=== PATIENT | male | born 1960 | race Caucasian/White ===

== ENCOUNTER 2020-04-17 18:59 | Inpatient (IN) | payer OTHER ==
[~2020-04-17] VITALS: Ht 175.3 cm; Wt 108.3 kg
[2020-04-17 19:52] LABS: BASOPHILS ABSOLUTE AUTO 0.07 K/mm3 (0.00-0.23); BASOPHILS PERCENT AUTO 1 % (0-2); EOSINOPHILS ABSOLUTE AUTO 0.12 K/mm3 (0.00-0.68); EOSINOPHILS PERCENT AUTO 2 % (0-6); Hematocrit 36.9 % (37.0-53.0); Hemoglobin 11.5 g/dL (13.5-17.5); IMMATURE GRAN ABSOLUTE AUTO 0.02 K/mm3 (0.00-0.10); IMMATURE GRAN PERCENT AUTO 0 % (0-1); LYMPHOCYTES ABSOLUTE AUTO 1.13 K/mm3 (0.84-5.20); LYMPHOCYTES PERCENT AUTO 16 % (21-46); MONOCYTES ABSOLUTE AUTO 0.79 K/mm3 (0.16-1.47); MONOCYTES PERCENT AUTO 11 % (4-13); Mean Corpuscular HGB 28.6 pg (26.0-34.0); Mean Corpuscular HGB Conc 31.2 g/dL (31.5-36.5); Mean Corpuscular Volume 92 fL (80-100); Mean Platelet Volume 10.1 fL (9.1-12.4); NEUTROPHILS ABSOLUTE AUTO 5.15 K/mm3 (1.96-9.15); NEUTROPHILS PERCENT AUTO 71 % (41-73); Platelet Count 237 K/mm3 (150-400); RDW Coefficient Variation 17.3 % (11.7-14.2); Red Blood Cell Count 4.02 M/mm3 (4.30-5.90); White Blood Cell Count 7.28 K/mm3 (4.00-11.30)
[2020-04-17 20:21] LABS: Alanine Aminotransfer (ALT/SGP 22 U/L (12-78); Albumin, Blood 3.1 g/dL (3.4-5.0); Albumin/Globulin Ratio 0.7 (0.8-1.8); Alk Phos 155 U/L (50-136); Anion Gap 5 mmol/L (6-16); Aspartate Aminotrans (AST/SGOT 19 U/L (12-37); Bilirubin, Total 1.5 mg/dL (0.1-1.0); Blood Urea Nitrogen 22 mg/dL (8-24); CO2, Blood 29 mmol/L (21-32); Calcium, Blood 8.7 mg/dL (8.5-10.1); Chloride, Blood 104 mmol/L (98-108); Creatinine, Blood 0.82 mg/dL (0.60-1.20); Globulin, Blood 4.2 g/dL (2.2-4.0); Glomerular Filtration Rate >60 (60-); Glucose, Blood 354 mg/dL (70-99); Potassium, Blood 4.8 mmol/L (3.5-5.5); Sodium, Blood 138 mmol/L (136-145); Total Protein, Blood 7.3 g/dL (6.4-8.2); Troponin I 0.111 ng/mL (0.000-0.040)
[2020-04-17] MEDS ORDERED: FUROSEMIDE20 MG PO (21:29)
[2020-04-17] MEDS ORDERED: GLIMEPIRIDE1 MG PO (21:30)
[2020-04-17] MEDS ORDERED: Lisinopril-Hct1 EAC4 PO (21:30)
[2020-04-17] MEDS ORDERED: LIPITOR80 MG PO (21:31)
[2020-04-17] MEDS ORDERED: BUDESONIDE-FO10.2 G3 INH (21:31)
[2020-04-17] MEDS ORDERED: SPIRONOLACTONE25 MG PO (21:31)
[2020-04-17] MEDS ORDERED: METFORMIN HCL1000 M4 PO (21:32)
[2020-04-17] MEDS ORDERED: IPRAT-ALBUT 0.5-3 ML NEB (21:32)
[2020-04-17] MEDS ORDERED: LOW DOSE ASPIRI81 M1 PO (21:33)
[2020-04-17] MEDS ORDERED: PRAM.5 PO (21:33)
[2020-04-17] MEDS ORDERED: METO50ER PO (21:33)
[2020-04-17] MEDS ORDERED: Ventolin/Prove6.7 GM INH (21:35)
--- NOTE | 2020-04-17 23:00 | NUR ---
ADMIT NOTE PT ARRIVED TO PCU FROM ED VIA STRETCHER AT APPROX 2300. PT AMBULATED INDEPENDENTLY FROM ED STRETCHER TO PCU BED. PT A&OX4. ANXIOUS AND COOPERATIVE. VSS. SP02>92% ON RA. PT WAS SOB UPON EXERTION/AMBULATION. RT IN ROOM FOR BREATHING TREATMENT. TELEMETRY READS SINUS TACH, HR 110'S. PT UNCOMFORTABLE D/T SWOLLEN SCROTUM. PT GIVEN LASIX IN ER. GAVE PT PILLOWCASE "HAMMOCK" FOR SCROTAL SUPPORT WELL ICE TO HELP SWELLING. PT STATED HE HAS HX OF RESTLESS LEG SYNDROME. CALL PLACED TO MD BELTRAN. MD BELTRAN WITH ONE TIME ORDER FOR MIRAPEX NOW. PT PACING THE ROOM INTERMITTENTLY. AMBULATING TO BSC INDEPENDENTLY. PT STATED HE LIVES IN [facility], "IN [facility]". STATED HE HAS BEARS COMING INTO HIS TENT AND "STEALING MY FOOD WHEN IM NOT THERE". THE PT IS VISITING HIS EX IN TOWN. PT ALSO MENTIONED A PREVIOUS HOSPITAL STAY IN [place] RECENTLY WHERE HE WAS IN RESTRAINTS. PT REPORTS BEING AGGRIVATED DURING THAT STAY. PT STATES, "I BROKE MY RESTRAINTS AND KICKED THEIR FACES IN." CALL LIGHT IN REACH. WILL CONTINUE TO MONITOR.
[2020-04-18 01:03] LABS: U Amphetamine Screen Not Detected; U Barbituate Screen Not Detected; U Benzodiazapine Screen Not Detected; U Buprenorphine Screen Not Detected; U Cannabinoids Screen Not Detected; U Cocaine Screen Not Detected; U Methadone Screen Not Detected; U Methamphetamine Screen Not Detected; U Opiates Screen Not Detected; U Oxycodone Screen Not Detected; U Phencyclidine Screen Not Detected
[2020-04-18 01:04] LABS: U Propoxyphene Screen Not Detected
[2020-04-18 02:39] LABS: Adenovirus Not Detected (NOT DETECT); Bordetella pertussis Not Detected (NOT DETECT); Chlamydophila pneumoniae Not Detected (NOT DETECT); Coronavirus 229E Not Detected (NOT DETECT); Coronavirus HKU1 Not Detected (NOT DETECT); Coronavirus NL63 Not Detected (NOT DETECT); Coronavirus OC43 Not Detected (NOT DETECT); Human Metapneumovirus Not Detected (NOT DETECT); Human Rhinovirus/Enterovirus Not Detected (NOT DETECT); Influenza A/2009-H1 Not Detected (NOT DETECT); Influenza A/H1 Not Detected (NOT DETECT); Influenza A/H3 Not Detected (NOT DETECT); Influenza B Not Detected (NOT DETECT); Mycoplasma pneumoniae Not Detected (NOT DETECT); Parainfluenza Virus 1 Not Detected (NOT DETECT); Parainfluenza Virus 2 Not Detected (NOT DETECT); Parainfluenza Virus 3 Not Detected (NOT DETECT); Parainfluenza Virus 4 Not Detected (NOT DETECT); Respiratory Syncytial Virus Not Detected (NOT DETECT); SARS-Cov-2 (COVID-19), BioFire Not Detected (NOT DETECT)
[2020-04-18 04:20] LABS: BASOPHILS ABSOLUTE AUTO 0.03 K/mm3 (0.00-0.23); BASOPHILS PERCENT AUTO 0 % (0-2); EOSINOPHILS ABSOLUTE AUTO 0.01 K/mm3 (0.00-0.68); EOSINOPHILS PERCENT AUTO 0 % (0-6); Hematocrit 35.8 % (37.0-53.0); Hemoglobin 11.1 g/dL (13.5-17.5); IMMATURE GRAN ABSOLUTE AUTO 0.04 K/mm3 (0.00-0.10); IMMATURE GRAN PERCENT AUTO 1 % (0-1); LYMPHOCYTES PERCENT AUTO 5 % (21-46); MONOCYTES ABSOLUTE AUTO 0.15 K/mm3 (0.16-1.47); MONOCYTES PERCENT AUTO 2 % (4-13); Mean Corpuscular HGB 28.3 pg (26.0-34.0); Mean Corpuscular Volume 91 fL (80-100); NEUTROPHILS ABSOLUTE AUTO 7.59 K/mm3 (1.96-9.15); NEUTROPHILS PERCENT AUTO 92 % (41-73); Platelet Count 200 K/mm3 (150-400); RDW Coefficient Variation 17.2 % (11.7-14.2); RDW Standard Deviation 57.7 fL (35.1-46.3); Red Blood Cell Count 3.92 M/mm3 (4.30-5.90); White Blood Cell Count 8.22 K/mm3 (4.00-11.30)
[2020-04-18 04:42] LABS: Anion Gap 6 mmol/L (6-16); Blood Urea Nitrogen 22 mg/dL (8-24); Bun/Creatinine Ratio 26.7 (12.0-20.0); CO2, Blood 29 mmol/L (21-32); Calcium, Blood 8.4 mg/dL (8.5-10.1); Chloride, Blood 101 mmol/L (98-108); Creatinine, Blood 0.82 mg/dL (0.60-1.20); Glomerular Filtration Rate >60 (60-); Glucose, Blood 409 mg/dL (70-99); Potassium, Blood 4.4 mmol/L (3.5-5.5); Sodium, Blood 136 mmol/L (136-145); Troponin I 0.082 ng/mL (0.000-0.040)
--- NOTE | 2020-04-18 05:56 | NUR ---
SHIFT SUMMARY PT A&OX4. ANXIOUS AND COOPERATIVE. VSS. SP02>92% ON RA. SOB UPON EXERTION/AMBULATION. TELEMETRY READS SINUS TACH, HR 110'S. PT UNCOMFORTABLE D/T SWOLLEN SCROTUM, STATES 10/10 PAIN. GAVE PT PILLOWCASE "HAMMOCK" FOR SCROTAL SUPPORT WELL ICE TO HELP SWELLING. MEDICATED WITH TYLENOL PER EMAR. PT PACING THE ROOM INTERMITTENTLY. PT STATES HE CANNOT GET COMFORTABLE SITTING OR LYING DOWN. PT STATES HE WANTS TO "CUT IT OFF" REGARDING HIS SCROTUM D/T PAIN. PT ALSO AMBULATED TO [facility] MULTIPLE TIMES T/O SHIFT. PT DID NOT SLEEP THIS SHIFT. PT DID HAVE AN APPETITE AND ASKED FOR/ATE SNACKS MULTIPLE TIMES. PT CURRENTLY IN BED WATCHING TV. CALL LIGHT IN REACH. WILL CONTINUE TO MONITOR.
--- NOTE | 2020-04-18 08:00 | NUR ---
pt laying in bed with eyes closed, responds slowly to nurse, after name is spoke, a/ox3, complains about breakfast food, v.s. stable, afebrile, iv site is clear and patent, lungs are course, wheezing, with crackles in bases, no coughed after taking po meds, encouraged him to sit up straight when taking any po, hrr, tele in place running sr per monitor, see strip, has scrotal edema and to legs, voids via urinal, skin has some scabs, up indep, andrés, call light in reach.
[2020-04-18 12:34] LABS: Glucose, Blood 581 mg/dL (70-99)
--- NOTE | 2020-04-18 14:50 | NUR ---
pt has been transferred to medical floor, report given to recieving nurse, pt was taken via wheelchair, with all belongings, box annealer in attendence.
--- NOTE | 2020-04-18 14:59 | NUR ---
After receiving an admit referral for spiritual care, I visit patient in PCU-1. Patient is sitting up in bed anbd alert. 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 Patient explains that he was told that he has less than 5yrs left to live due to his heart issues. I normalize patient's experience, and provide companionship, therapeutic listening and a calming presence. I will continue to remain available to patient and family.
[2020-04-18 15:25] LABS: Glucose, Blood 459 mg/dL (70-99)
--- NOTE | 2020-04-18 19:12 | NUR ---
Shift Summary Received report from Meagan PCU-RN. Patient arrived to unit via w/c approximately 1445. A/Ox4, pleasant with care. Calls appropriately for needs. Blood sugar check showed 172, per Nursing Notify order, patient is changed back to [facility] blood sugar checks. Dinner given, appetite is great. Mild dyspnea with exertion. Denies pain, nausea. Passed on to night RN that patient needed 3am blood sugar check. Up in room and to bathroom independently. No other changes. Report given to oncoming RN.
--- NOTE | 2020-04-19 04:31 | NUR ---
SHIFT SUMMARY NO ACUTE CHANGES TO REPORT THIS SHIFT. PT HAS BEEN INDEPENDENT IN HIS ROOM, HE AMBULATES TO THE VENDING MACHINE A FEW TIMES THIS SHIFT. HE HAS BEEN AWAKE MOST OF THE NIGHT DESPITE SEROQUELL THAT HE RECEIVED HS. PT NONCOMPLAINT WITH ADA DIET, AND WILL EAT SNACKS FROM THE VENDING MACHINE THAT ARE NOT SUGAR FREE. BG MONITORED THIS SHIFT ORDERED. PT PLESANT AND COOPERATIVE WITH CARE. DENIES NEEDS MOST OF THE NIGHT. BED IN LOWEST POSITION, CALL LIGHT WITHIN REACH.
[2020-04-19 04:36] LABS: BASOPHILS ABSOLUTE AUTO 0.01 K/mm3 (0.00-0.23); BASOPHILS PERCENT AUTO 0 % (0-2); EOSINOPHILS PERCENT AUTO 0 % (0-6); Hematocrit 35.3 % (37.0-53.0); Hemoglobin 11.2 g/dL (13.5-17.5); IMMATURE GRAN PERCENT AUTO 1 % (0-1); LYMPHOCYTES ABSOLUTE AUTO 0.52 K/mm3 (0.84-5.20); LYMPHOCYTES PERCENT AUTO 3 % (21-46); MONOCYTES ABSOLUTE AUTO 0.84 K/mm3 (0.16-1.47); MONOCYTES PERCENT AUTO 5 % (4-13); Mean Corpuscular HGB 29.1 pg (26.0-34.0); Mean Corpuscular HGB Conc 31.7 g/dL (31.5-36.5); Mean Corpuscular Volume 92 fL (80-100); Mean Platelet Volume 10.4 fL (9.1-12.4); NEUTROPHILS ABSOLUTE AUTO 17.37 K/mm3 (1.96-9.15); NEUTROPHILS PERCENT AUTO 92 % (41-73); Platelet Count 227 K/mm3 (150-400); RDW Coefficient Variation 17.5 % (11.7-14.2); RDW Standard Deviation 58.4 fL (35.1-46.3); Red Blood Cell Count 3.85 M/mm3 (4.30-5.90); White Blood Cell Count 18.84 K/mm3 (4.00-11.30)
[2020-04-19 04:54] LABS: Anion Gap 5 mmol/L (6-16); Blood Urea Nitrogen 42 mg/dL (8-24); Bun/Creatinine Ratio 40.8 (12.0-20.0); CO2, Blood 31 mmol/L (21-32); Calcium, Blood 8.4 mg/dL (8.5-10.1); Chloride, Blood 99 mmol/L (98-108); Creatinine, Blood 1.03 mg/dL (0.60-1.20); Glomerular Filtration Rate >60 (60-); Glucose, Blood 456 mg/dL (70-99); Potassium, Blood 4.4 mmol/L (3.5-5.5); Sodium, Blood 135 mmol/L (136-145)
--- NOTE | 2020-04-19 08:09 | NUR ---
BLOOD SUGAR [address] BOWER RE ABOVE BLOOD SUGAR FINDINGS. ORDER RECEIVED AND UPDATED PER NURSING NOTIFY.
--- NOTE | 2020-04-19 17:03 | NUR ---
Shift Summary A/Ox3, received in report that patient went downstairs to purchase multiple snacks from the vending machine in the middle of the night. Blood sugar this morning was 494 and is currently down to 132 ac/dinner. Patient often complains of being hungry and frequently asks for snacks. Very cooperative with care this shift as long as things were explained to him. Productive cough with thick, clear, white, grayish sputum; L/S clear. Swelling in scrotum continues. Strict I/O's, patient is on a fluid restriction of 2L and has been compliant today. Will continue to monitor and report to oncoming RN.
--- NOTE | 2020-04-20 03:39 | NUR ---
SUMMARY NO NEW ISSUES NOTED. PT HAS CONTINUALLY REQUESTED SNACKS T/O SHIFT. PT INFORMED THAT IN ORDER TO CONTROL HIS BLOOD SUGARS WE HAD TO LIMIT HIS SNACKING UNTIL BREAKFAST. PT HAS NOT SLEPT MUCH THIS SHIFT. PT CURRENTLY AWAKE AND IN NO DISTRESS.
[2020-04-20 05:26] LABS: BASOPHILS ABSOLUTE AUTO 0.04 K/mm3 (0.00-0.23); BASOPHILS PERCENT AUTO 1 % (0-2); EOSINOPHILS ABSOLUTE AUTO 0.04 K/mm3 (0.00-0.68); EOSINOPHILS PERCENT AUTO 1 % (0-6); Hemoglobin 11.2 g/dL (13.5-17.5); IMMATURE GRAN ABSOLUTE AUTO 0.03 K/mm3 (0.00-0.10); IMMATURE GRAN PERCENT AUTO 0 % (0-1); LYMPHOCYTES ABSOLUTE AUTO 1.48 K/mm3 (0.84-5.20); LYMPHOCYTES PERCENT AUTO 17 % (21-46); MONOCYTES PERCENT AUTO 8 % (4-13); Mean Corpuscular HGB 28.1 pg (26.0-34.0); Mean Corpuscular HGB Conc 31.1 g/dL (31.5-36.5); Mean Corpuscular Volume 91 fL (80-100); Mean Platelet Volume 10.1 fL (9.1-12.4); NEUTROPHILS ABSOLUTE AUTO 6.57 K/mm3 (1.96-9.15); NEUTROPHILS PERCENT AUTO 74 % (41-73); Platelet Count 216 K/mm3 (150-400); RDW Coefficient Variation 17.6 % (11.7-14.2); RDW Standard Deviation 58.4 fL (35.1-46.3); Red Blood Cell Count 3.98 M/mm3 (4.30-5.90); White Blood Cell Count 8.86 K/mm3 (4.00-11.30)
[2020-04-20 06:05] LABS: Anion Gap 5 mmol/L (6-16); Blood Urea Nitrogen 50 mg/dL (8-24); Bun/Creatinine Ratio 44.2 (12.0-20.0); CO2, Blood 33 mmol/L (21-32); Chloride, Blood 102 mmol/L (98-108); Creatinine, Blood 1.13 mg/dL (0.60-1.20); Glomerular Filtration Rate >60 (60-); Glucose, Blood 174 mg/dL (70-99); Potassium, Blood 3.6 mmol/L (3.5-5.5); Sodium, Blood 140 mmol/L (136-145)
--- NOTE | 2020-04-21 03:58 | NUR ---
MANAGER SOCIAL WORK SUMMARY PT A&OX4, ABLE TO MAKE NEEDS KNOWN. PLEASANT AND COOPERATIVE TO CARE. NO C/O PAIN OR ANY DISCOMFORT THIS SHIFT. CALM AND RESTED T/O SHIFT. PT IS INDEPENDENT IN ROOM. DENIES CP, SOB, AND N&V. POSSIBLE DISCHARGE TO HOME 04/21/2020. CALL LIGHT WITHIN REACH.
[2020-04-21 05:11] LABS: BASOPHILS ABSOLUTE AUTO 0.04 K/mm3 (0.00-0.23); BASOPHILS PERCENT AUTO 1 % (0-2); EOSINOPHILS ABSOLUTE AUTO 0.11 K/mm3 (0.00-0.68); EOSINOPHILS PERCENT AUTO 2 % (0-6); Hematocrit 33.2 % (37.0-53.0); Hemoglobin 10.8 g/dL (13.5-17.5); IMMATURE GRAN ABSOLUTE AUTO 0.02 K/mm3 (0.00-0.10); IMMATURE GRAN PERCENT AUTO 0 % (0-1); LYMPHOCYTES ABSOLUTE AUTO 1.26 K/mm3 (0.84-5.20); LYMPHOCYTES PERCENT AUTO 20 % (21-46); MONOCYTES ABSOLUTE AUTO 0.69 K/mm3 (0.16-1.47); MONOCYTES PERCENT AUTO 11 % (4-13); Mean Corpuscular HGB 29.5 pg (26.0-34.0); Mean Corpuscular HGB Conc 32.5 g/dL (31.5-36.5); Mean Corpuscular Volume 91 fL (80-100); Mean Platelet Volume 10.3 fL (9.1-12.4); NEUTROPHILS ABSOLUTE AUTO 4.13 K/mm3 (1.96-9.15); NEUTROPHILS PERCENT AUTO 66 % (41-73); Platelet Count 190 K/mm3 (150-400); RDW Coefficient Variation 17.6 % (11.7-14.2); RDW Standard Deviation 57.9 fL (35.1-46.3); Red Blood Cell Count 3.66 M/mm3 (4.30-5.90); White Blood Cell Count 6.25 K/mm3 (4.00-11.30)
[2020-04-21 05:25] LABS: Anion Gap 5 mmol/L (6-16); Blood Urea Nitrogen 47 mg/dL (8-24); Bun/Creatinine Ratio 49.5 (12.0-20.0); CO2, Blood 35 mmol/L (21-32); Calcium, Blood 8.8 mg/dL (8.5-10.1); Chloride, Blood 102 mmol/L (98-108); Creatinine, Blood 0.95 mg/dL (0.60-1.20); Glomerular Filtration Rate >60 (60-); Glucose, Blood 240 mg/dL (70-99); Potassium, Blood 3.8 mmol/L (3.5-5.5); Sodium, Blood 142 mmol/L (136-145)
[2020-04-21] MEDS ORDERED: SPIR25 PO (11:22)
[2020-04-21] MEDS ORDERED: SEMGLEE PE100 UNIT/1 SC (11:27)
[2020-04-21] MEDS ORDERED: K-Dur 20 meq T20 MEQ PO (11:30)
--- NOTE | 2020-04-21 12:03 | NUR ---
DISCHARGED TO EX- HOME. PT AGREEABLE TO FOLLOW-UP WITH PCP ONCE BACK IN [place], MD AWARE. PT VERBALIZED UNDERSTANDING OF RX'S, FOLLOW-UP AND INSTRUCTIONS. MEDS SENT TO [facility], PT PHARM OF CHOICE. ALL QUESTIONS ANSWERED. COMMUNITY RESOURCES PROVIDED.
== END 2020-04-21 12:05 | disposition home or self-care (01) | DRG 292 ==
LOC: ER 18:59 → PCU 19:00 → ER 22:34 → PCU 22:53 → MEDS 04-18 14:46
PROVIDERS: Emergency Medicine; Hospitalist; Nurse Practitioner Acute Care; Student in an Organized Health Care Education/Training Program; ADMIT Internal Medicine
DX: I11.0 Hypertensive heart disease with heart failure (principal); J44.1 Chronic obstructive pulmonary disease with (acute) exacerbation; K59.00 Constipation, unspecified; Z66 Do not resuscitate; I50.23 Acute on chronic systolic (congestive) heart failure; E11.9 Type 2 diabetes mellitus without complications; F17.210 Nicotine dependence, cigarettes, uncomplicated; Z59.0 Homelessness; N50.89 Other specified disorders of the male genital organs; I25.2 Old myocardial infarction; F15.10 Other stimulant abuse, uncomplicated; G47.00 Insomnia, unspecified; Z91.14 Patient's other noncompliance with medication regimen; Z79.4 Long term (current) use of insulin; Z95.5 Presence of coronary angioplasty implant and graft
CPT/HCPCS: 0202U; 36415; 71046; 76870; 80048; 80053; 82947; 83605; 83880; 84484; 85025; 87040; 90732; 93005; 93010; 94640; 94664; 94667; 94668; 94760; 94762; 96372; 96374; 96375; 96376; 98960; 99285-25; A9270; A9270-GY; G0008; G0009; G0378; J0456; J1100; J1650; J1815; J1940; J2930; J7050; Q2038

== ENCOUNTER 2020-04-28 08:12 | Emergency (ER) | payer SELFPAY ==
[~2020-04-28] VITALS: Ht 175.3 cm; Wt 104.3 kg
[~2020-04-28 08:12] MED LIST: BUDESONIDE-FO10.2 G3 INH; FUROSEMIDE20 MG PO; GLIMEPIRIDE1 MG PO; IPRAT-ALBUT 0.5-3 ML NEB; K-Dur 20 meq T20 MEQ PO; LIPITOR80 MG PO; LOW DOSE ASPIRI81 M1 PO; Lisinopril-Hct1 EAC4 PO; METFORMIN HCL1000 M4 PO; METO50ER PO; PRAM.5 PO; SEMGLEE PE100 UNIT/1 SC; SPIR25 PO; SPIRONOLACTONE25 MG PO; Ventolin/Prove6.7 GM INH
[2020-04-28 09:42] LABS: Alanine Aminotransfer (ALT/SGP 19 U/L (12-78); Albumin, Blood 3.1 g/dL (3.4-5.0); Albumin/Globulin Ratio 0.8 (0.8-1.8); Alk Phos 141 U/L (50-136); Anion Gap 2 mmol/L (6-16); Aspartate Aminotrans (AST/SGOT 19 U/L (12-37); Bilirubin, Total 1.2 mg/dL (0.1-1.0); Blood Urea Nitrogen 29 mg/dL (8-24); Bun/Creatinine Ratio 30.5 (12.0-20.0); CO2, Blood 33 mmol/L (21-32); Calcium, Blood 8.8 mg/dL (8.5-10.1); Chloride, Blood 103 mmol/L (98-108); Creatinine, Blood 0.95 mg/dL (0.60-1.20); Glomerular Filtration Rate >60 (60-); Glucose, Blood 255 mg/dL (70-99); Potassium, Blood 4.5 mmol/L (3.5-5.5); Sodium, Blood 138 mmol/L (136-145); Total Protein, Blood 7.1 g/dL (6.4-8.2); Troponin I 0.032 ng/mL (0.000-0.040)
[2020-04-28 10:08] LABS: BASOPHILS ABSOLUTE AUTO 0.07 K/mm3 (0.00-0.23); BASOPHILS PERCENT AUTO 1 % (0-2); EOSINOPHILS ABSOLUTE AUTO 0.11 K/mm3 (0.00-0.68); EOSINOPHILS PERCENT AUTO 1 % (0-6); Hematocrit 37.5 % (37.0-53.0); Hemoglobin 11.8 g/dL (13.5-17.5); IMMATURE GRAN ABSOLUTE AUTO 0.04 K/mm3 (0.00-0.10); IMMATURE GRAN PERCENT AUTO 1 % (0-1); LYMPHOCYTES ABSOLUTE AUTO 1.43 K/mm3 (0.84-5.20); LYMPHOCYTES PERCENT AUTO 17 % (21-46); MONOCYTES ABSOLUTE AUTO 0.84 K/mm3 (0.16-1.47); MONOCYTES PERCENT AUTO 10 % (4-13); Mean Corpuscular HGB Conc 31.5 g/dL (31.5-36.5); Mean Corpuscular Volume 92 fL (80-100); Mean Platelet Volume 10.6 fL (9.1-12.4); NEUTROPHILS ABSOLUTE AUTO 5.86 K/mm3 (1.96-9.15); NEUTROPHILS PERCENT AUTO 70 % (41-73); Platelet Count 212 K/mm3 (150-400); RDW Coefficient Variation 17.1 % (11.7-14.2); RDW Standard Deviation 57.7 fL (35.1-46.3); Red Blood Cell Count 4.07 M/mm3 (4.30-5.90); White Blood Cell Count 8.35 K/mm3 (4.00-11.30)
[2020-04-28] MEDS ORDERED: SPIR25 PO (11:34)
== END 2020-04-28 11:56 | disposition home or self-care (01) ==
LOC: ER 08:12
PROVIDERS: Emergency Medicine
DX: I11.0 Hypertensive heart disease with heart failure (principal); I50.9 Heart failure, unspecified; E11.9 Type 2 diabetes mellitus without complications; I25.2 Old myocardial infarction; Z79.899 Other long term (current) drug therapy; Z79.82 Long term (current) use of aspirin; Z79.4 Long term (current) use of insulin
CPT/HCPCS: 36415; 71046; 80053; 83880; 84484; 85025; 93005; 93010; 96374; 99284-25; J1940

== ENCOUNTER 2020-05-03 15:50 | Emergency (ER) | payer OTHER ==
[~2020-05-03] VITALS: Ht 175.3 cm; Wt 104.3 kg
[2020-05-03 17:00] LABS: BASOPHILS ABSOLUTE AUTO 0.08 K/mm3 (0.00-0.23); BASOPHILS PERCENT AUTO 1 % (0-2); EOSINOPHILS ABSOLUTE AUTO 0.06 K/mm3 (0.00-0.68); EOSINOPHILS PERCENT AUTO 1 % (0-6); Hemoglobin 11.2 g/dL (13.5-17.5); IMMATURE GRAN ABSOLUTE AUTO 0.02 K/mm3 (0.00-0.10); IMMATURE GRAN PERCENT AUTO 0 % (0-1); LYMPHOCYTES PERCENT AUTO 13 % (21-46); MONOCYTES ABSOLUTE AUTO 0.68 K/mm3 (0.16-1.47); MONOCYTES PERCENT AUTO 9 % (4-13); Mean Corpuscular HGB 28.4 pg (26.0-34.0); Mean Corpuscular HGB Conc 31.1 g/dL (31.5-36.5); Mean Corpuscular Volume 91 fL (80-100); Mean Platelet Volume 10.7 fL (9.1-12.4); NEUTROPHILS ABSOLUTE AUTO 5.68 K/mm3 (1.96-9.15); NEUTROPHILS PERCENT AUTO 76 % (41-73); Platelet Count 203 K/mm3 (150-400); RDW Coefficient Variation 17.2 % (11.7-14.2); Red Blood Cell Count 3.95 M/mm3 (4.30-5.90); White Blood Cell Count 7.52 K/mm3 (4.00-11.30)
[2020-05-03 17:26] LABS: Troponin I 0.017 ng/mL (0.000-0.040)
[2020-05-03 17:32] LABS: Alanine Aminotransfer (ALT/SGP 16 U/L (12-78); Albumin, Blood 3.1 g/dL (3.4-5.0); Albumin/Globulin Ratio 0.8 (0.8-1.8); Alk Phos 134 U/L (50-136); Anion Gap 8 mmol/L (6-16); Aspartate Aminotrans (AST/SGOT 19 U/L (12-37); Bilirubin, Total 2.3 mg/dL (0.1-1.0); Blood Urea Nitrogen 24 mg/dL (8-24); Bun/Creatinine Ratio 24.7 (12.0-20.0); CO2, Blood 28 mmol/L (21-32); Chloride, Blood 105 mmol/L (98-108); Creatinine, Blood 0.97 mg/dL (0.60-1.20); Globulin, Blood 3.8 g/dL (2.2-4.0); Glomerular Filtration Rate >60 (60-); Glucose, Blood 229 mg/dL (70-99); Potassium, Blood 4.4 mmol/L (3.5-5.5); Sodium, Blood 141 mmol/L (136-145); Total Protein, Blood 6.9 g/dL (6.4-8.2)
== END 2020-05-03 21:07 | disposition home or self-care (01) ==
LOC: ER 15:50
PROVIDERS: Physician Assistant
DX: R60.1 Generalized edema (principal); N50.89 Other specified disorders of the male genital organs; I11.0 Hypertensive heart disease with heart failure; I50.9 Heart failure, unspecified; I25.2 Old myocardial infarction; E11.9 Type 2 diabetes mellitus without complications; F17.200 Nicotine dependence, unspecified, uncomplicated; Z79.899 Other long term (current) drug therapy; Z79.51 Long term (current) use of inhaled steroids; Z79.4 Long term (current) use of insulin; Z79.82 Long term (current) use of aspirin; Z88.8 Allergy status to other drugs, medicaments and biological substances
CPT/HCPCS: 36415; 71046; 80053; 83880; 84484; 85025; 93005; 93010; 96374; 99285-25; J1940

== ENCOUNTER 2020-06-05 17:29 | Inpatient (IN) | payer SELFPAY ==
[~2020-06-05] VITALS: Ht 175.3 cm; Wt 103.0 kg
[~2020-06-05 17:29] MED LIST changes: -BUDESONIDE-FO10.2 G3 INH; -FUROSEMIDE20 MG PO; -GLIMEPIRIDE1 MG PO; -IPRAT-ALBUT 0.5-3 ML NEB; -LIPITOR80 MG PO; -LOW DOSE ASPIRI81 M1 PO; -Lisinopril-Hct1 EAC4 PO; -METFORMIN HCL1000 M4 PO; -METO50ER PO; -PRAM.5 PO; -SEMGLEE PE100 UNIT/1 SC; -Ventolin/Prove6.7 GM INH
[2020-06-05 18:01] LABS: Base Excess Venous 3.7 mmol/L; PCO2 Venous 43.6 mmHg (38-42); PO2 Venous 56.5 mmHg (38-42); pH Blood Venous 7.42 (7.34-7.37)
[2020-06-05 18:03] LABS: BASOPHILS ABSOLUTE AUTO 0.08 K/mm3 (0.00-0.23); BASOPHILS PERCENT AUTO 1 % (0-2); EOSINOPHILS ABSOLUTE AUTO 0.11 K/mm3 (0.00-0.68); EOSINOPHILS PERCENT AUTO 2 % (0-6); Hematocrit 37.7 % (37.0-53.0); Hemoglobin 12.1 g/dL (13.5-17.5); IMMATURE GRAN ABSOLUTE AUTO 0.01 K/mm3 (0.00-0.10); IMMATURE GRAN PERCENT AUTO 0 % (0-1); LYMPHOCYTES ABSOLUTE AUTO 1.15 K/mm3 (0.84-5.20); LYMPHOCYTES PERCENT AUTO 19 % (21-46); MONOCYTES ABSOLUTE AUTO 0.47 K/mm3 (0.16-1.47); MONOCYTES PERCENT AUTO 8 % (4-13); Mean Corpuscular HGB Conc 32.1 g/dL (31.5-36.5); Mean Corpuscular Volume 90 fL (80-100); NEUTROPHILS ABSOLUTE AUTO 4.37 K/mm3 (1.96-9.15); NEUTROPHILS PERCENT AUTO 71 % (41-73); Platelet Count 222 K/mm3 (150-400); RDW Coefficient Variation 17.5 % (11.7-14.2); RDW Standard Deviation 57.9 fL (35.1-46.3); Red Blood Cell Count 4.17 M/mm3 (4.30-5.90); White Blood Cell Count 6.19 K/mm3 (4.00-11.30)
[2020-06-05 18:22] LABS: Alanine Aminotransfer (ALT/SGP 19 U/L (12-78); Albumin, Blood 3.4 g/dL (3.4-5.0); Albumin/Globulin Ratio 0.8 (0.8-1.8); Alk Phos 131 U/L (50-136); Anion Gap 8 mmol/L (6-16); Aspartate Aminotrans (AST/SGOT 30 U/L (12-37); Bilirubin, Total 1.8 mg/dL (0.1-1.0); Blood Urea Nitrogen 20 mg/dL (8-24); Bun/Creatinine Ratio 27.4 (12.0-20.0); CO2, Blood 25 mmol/L (21-32); Calcium, Blood 9.2 mg/dL (8.5-10.1); Chloride, Blood 103 mmol/L (98-108); Creatinine, Blood 0.73 mg/dL (0.60-1.20); Globulin, Blood 4.3 g/dL (2.2-4.0); Glomerular Filtration Rate >60 (60-); Glucose, Blood 291 mg/dL (70-99); Potassium, Blood 4.8 mmol/L (3.5-5.5); Sodium, Blood 136 mmol/L (136-145); Total Protein, Blood 7.7 g/dL (6.4-8.2); Troponin I 0.033 ng/mL (0.000-0.040)
[2020-06-05 19:15] LABS: Source, Urine Clean Catch
[2020-06-05 19:23] LABS: Appearance, Urine Clear (Clear); Bilirubin, Urine Neg (Neg); Blood, Urine Neg (Neg); Color, Urine Yellow (P-Yellow); Glucose Qualitative, Urine 3+ (Neg); Ketones, Urine Neg (Neg); Leukocyte Esterase, Urine Neg (Neg); Nitrite, Urine Neg (Neg); Protein, Urine Neg (Neg); Urobilinogen, Urine NORM (Normal)
[2020-06-05] MEDS ORDERED: GLIMEPIRIDE1 MG PO (20:13)
[2020-06-05] MEDS ORDERED: SPIRONOLACTONE25 MG PO (20:13)
[2020-06-05] MEDS ORDERED: METO50ER PO (20:14)
[2020-06-05] MEDS ORDERED: LOW DOSE ASPIRI81 M1 PO (20:14)
[2020-06-05] MEDS ORDERED: METFORMIN HCL1000 M4 PO (20:14)
[2020-06-05] MEDS ORDERED: PRAM.5 PO (20:15)
[2020-06-05] MEDS ORDERED: Lisinopril-Hct1 EAC4 PO (20:16)
[2020-06-05] MEDS ORDERED: FURO40 PO (20:16)
[2020-06-05] MEDS ORDERED: Potassium Chlo20 ME1 PO (20:16)
[2020-06-05] MEDS ORDERED: BUDESONIDE-FO10.2 G3 INH (20:17)
[2020-06-05] MEDS ORDERED: IPRAT-ALBUT 0.5-3 ML NEB (20:17)
[2020-06-05] MEDS ORDERED: Ventolin/Prove6.7 GM INH (20:18)
[2020-06-05] MEDS ORDERED: SEMGLEE PE100 UNIT/1 SC (20:19)
[2020-06-05] MEDS ORDERED: LIPITOR80 MG PO (20:19)
--- NOTE | 2020-06-06 04:20 | NUR ---
INVENTORY MANAGEMENT SPECIALIST SUMMARY PT ADMITTED FROM ED THIS SHIFT, RECEIVED REPORT FROM ABDELRAHMAN ELIZABETH. PT A&OX4, ABLE TO MAKE NEEDS KNOWN. PLEASANT AND COOPERATIVE TO CARE. NO C/O PAIN, DENIES CP OR N&V, EXP WHEEZES NOTED UPON AUSCULTATION, PT ON 2LPM O2 VIA NC, SATS AT 94%. PT CALM AND RESTED IN BED T/O SHIFT. BED AT LOWEST POSITION, CALL LIGHT WITHIN REACH.
[2020-06-06 06:06] LABS: Anion Gap 7 mmol/L (6-16); Blood Urea Nitrogen 24 mg/dL (8-24); Bun/Creatinine Ratio 30.3 (12.0-20.0); CO2, Blood 30 mmol/L (21-32); Calcium, Blood 8.3 mg/dL (8.5-10.1); Chloride, Blood 100 mmol/L (98-108); Creatinine, Blood 0.79 mg/dL (0.60-1.20); Glomerular Filtration Rate >60 (60-); Glucose, Blood 441 mg/dL (70-99); Sodium, Blood 137 mmol/L (136-145); Troponin I 0.033 ng/mL (0.000-0.040)
--- NOTE | 2020-06-06 07:29 | NUR ---
CBG PT CBG IS 400; NOTIFIED DR AND PT RECEIVED 12 UNITS OF HUMILIN R; WILL RECHECK BLOOD SUGAR
--- NOTE | 2020-06-06 16:20 | NUR ---
SHIFT SUMMARY PT AOX4; CALLS APPPROPRIATELY. PT C/O PAIN ON HIS SCROTUM- WHICH HAS SOME SWELLING; MEDICATED PER EMAR. DR ALSO NOTIFIED ABOUT THE CBG THAT WAS 400 THIS AM; CHANGED MEDICATIONS THIS AM AND PT RECEIVED THE SHORT AND LONG ACTING. PT STATED THAT HE MOVED TO A NEW PLACE AND WAS NOT ABLE TO FIND HIS MEDICATIONS; THAT WAS ONE OF THE REASON HE WAS NOT ABLE TO TAKE MEDICATIONS. PT HAS EXP WHEEZES BILAT AND +1 EDEMA ON BLE. VSS. BED IS IN THE LOWEST POSITION AND CALL LIGHT WITHIN REACH.
--- NOTE | 2020-06-07 04:51 | NUR ---
SUMMARY PT REPORTS BREATHING IS IMPROVING. PT REPORTS CONTINUED PUBIC/ SCROTAL DISCOMFORT. PT MEDICATED PER EMAR W/ GOOD RELIEF. PT REPORTS SWELLING OF SCROTUM HAS IMPROVED. PT WAS UP LATE WATCHING TV. PT CURRENTLY SLEEPING AND BREATHING EASY. CALL LIGHT IN REACH.
[2020-06-07 05:33] LABS: Albumin, Blood 3.1 g/dL (3.4-5.0); Anion Gap 6 mmol/L (6-16); Blood Urea Nitrogen 34 mg/dL (8-24); Bun/Creatinine Ratio 36.5 (12.0-20.0); CO2, Blood 32 mmol/L (21-32); Calcium, Blood 8.6 mg/dL (8.5-10.1); Chloride, Blood 100 mmol/L (98-108); Creatinine, Blood 0.93 mg/dL (0.60-1.20); Glomerular Filtration Rate >60 (60-); Glucose, Blood 235 mg/dL (70-99); Phosphorus, Blood 4.1 mg/dL (2.5-4.9); Potassium, Blood 3.4 mmol/L (3.5-5.5); Sodium, Blood 138 mmol/L (136-145)
--- NOTE | 2020-06-07 14:28 | NUR ---
Patient reports "I'm just not feeling well" and unable to describe this unwell feeling any further. O2 sats @ 96% on RA. Tele: SR 76 and per telemetry, no acute events since the past hour. Patient denies chest pain, pressure, nausea. States "It feels like I just overate." Patient does not appear diaphoretic, skin is dry. Does feel a little warm and seems to be breathing somewhat heavy. Patient reports "My legs feel clammy". Upon touching legs, they feel dry. Blood sugar was rechecked and found to be 235. Discussed with another nurse Delbert about my assessments and notified Dr. Lerner. -Update, telephone directory distributor driver Jonna araya'd this RN and said patient had a 25 beat run of v-tach approximately 8 minutes ago and has now resolved. Rhythm is back in SR. Dr. Lerner notified of cardiac event. Will continue to monitor.
--- NOTE | 2020-06-07 19:23 | NUR ---
Shift Summary A/Ox4, cooperative with care. Frequently asks for food and additional milk/drinks. Counseled on fluid restriction and high blood sugars. Leg and scrotal swelling still present, patient states this has decreased since admit. Independent in room, encouraged patient to use urinal for accurate I/O. At 1755, telephone plant power operator reported 2 PVC's. At 1840, telephone plant power operator reported another 8 beat of V-tach however patient was asymptomatic both times and resting in bed (see previous note RE 25 beat v-tach). Tele: SR 76. Fluid restrictions of 1500 remain. Life vest to be fitted between the hours of [id number] tomorrow 06/08/20. Dr. eLrner has been notified of acute cardiac events and plan for life vest fitting. Reported to oncoming RN.
--- NOTE | 2020-06-08 04:08 | NUR ---
SHIFT SUMMARY- PT. A&O, INDEPENDENT IN ROOM. ALSO AMBULATED IN THE HALLWAY W/MASK ON. C/O SUPRAPUBIC AREA PAIN, MEDICATED PER EMAR. PT. REPORTS MINIMAL RELIEF. PT. AWAKE ALL NIGHT, NO APPARENT DISTRESS NOTED. VSS. PT. ANTICIPATING DC TODAY WITH LIFEVEST. NO OTHER COMPLAINTS THIS SHIFT. CALL LIGHT WITHIN REACH AND SIDE RAILS UPX2. WILL CONT TO MONITOR.
[2020-06-08 06:42] LABS: Albumin, Blood 3.2 g/dL (3.4-5.0); Anion Gap 4 mmol/L (6-16); Blood Urea Nitrogen 35 mg/dL (8-24); Bun/Creatinine Ratio 38.5 (12.0-20.0); CO2, Blood 32 mmol/L (21-32); Calcium, Blood 8.6 mg/dL (8.5-10.1); Chloride, Blood 102 mmol/L (98-108); Creatinine, Blood 0.91 mg/dL (0.60-1.20); Glomerular Filtration Rate >60 (60-); Glucose, Blood 201 mg/dL (70-99); Magnesium, Blood 2.2 mg/dL (1.6-2.4); Phosphorus, Blood 4.2 mg/dL (2.5-4.9); Potassium, Blood 4.3 mmol/L (3.5-5.5); Sodium, Blood 138 mmol/L (136-145)
--- NOTE | 2020-06-08 12:47 | NUR ---
Clarification RE ME Med Insulin Glargine dispensed quantity verified with Dr. Lerner. Patient to be discharged with 5 syringes and 2 refills of Insulin Glargine. [facility] updated on revised order.
[2020-06-08] MEDS ORDERED: DOCU100 PO (13:14)
[2020-06-08] MEDS ORDERED: Prinivil10 MG PO (13:15)
[2020-06-08] MEDS ORDERED: SENN187 PO (13:32)
[2020-06-08] MEDS ORDERED: ASPI81CH PO (13:32)
[2020-06-08] MEDS ORDERED: PANT20 PO (13:33)
--- NOTE | 2020-06-08 14:54 | NUR ---
Discharge Summary Patient discharge to home. Reviewed discharge paperwork with patient, no questions at this time. Copy provided. Meds faxed to preferred pharmacy. Packet to establish PCP with [facility] given to patient. IV removed, WNL. Personal belongings sent home. Escorted by HEEL SANDER RUBBER via w/c, self transport home. Patient had life vest fitted and currently wearing at discharge.
== END 2020-06-08 14:16 | disposition home or self-care (01) | DRG 293 ==
LOC: ER 17:29 → MEDS 21:02
PROVIDERS: Internal Medicine; Physician Assistant; ADMIT Family Medicine
DX: I11.0 Hypertensive heart disease with heart failure (principal); Z79.82 Long term (current) use of aspirin; I50.43 Acute on chronic combined systolic (congestive) and diastolic (congestive) heart failure; I25.2 Old myocardial infarction; F17.210 Nicotine dependence, cigarettes, uncomplicated; I25.10 Atherosclerotic heart disease of native coronary artery without angina pectoris; J44.9 Chronic obstructive pulmonary disease, unspecified; E87.6 Hypokalemia; D63.8 Anemia in other chronic diseases classified elsewhere; I27.20 Pulmonary hypertension, unspecified; I07.1 Rheumatic tricuspid insufficiency; G47.00 Insomnia, unspecified; K59.00 Constipation, unspecified; Z23 Encounter for immunization; I89.0 Lymphedema, not elsewhere classified
CPT/HCPCS: 36415; 71046; 80048; 80053; 80069; 81003; 82803; 82947; 83036; 83735; 83880; 84484; 85025; 93005; 93010; 93306; 94640; 94760; 96374; 96375; 99285-25; 99406; A9270; A9270-GY; J1650; J1815; J1940; J2930; Q2038

== ENCOUNTER 2020-10-24 11:40 | Inpatient (IN) | payer MEDICARE, OTHER ==
[~2020-10-24] VITALS: Ht 175.3 cm; Wt 99.4 kg
[~2020-10-24 11:40] MED LIST changes: +Aspirin EC81 MG PO; +BUDESONIDE-FO10.2 G3 INH; +DOCU100 PO; +FURO40 PO; +GLIMEPIRIDE1 MG PO; +IPRAT-ALBUT 0.5-3 ML NEB; +LIPITOR80 MG PO; +LOW DOSE ASPIRI81 M1 PO; +Lisinopril-Hct1 EAC4 PO; +METFORMIN HCL1000 M4 PO; +METO50ER PO; +PANT20 PO; +PRAM.5 PO; +Potassium Chlo20 ME1 PO; +Prinivil10 MG PO; +SEMGLEE PE100 UNIT/1 SC; +SENN187 PO; +Ventolin/Prove6.7 GM INH
[2020-10-24 12:51] LABS: BASOPHILS ABSOLUTE AUTO 0.06 K/mm3 (0.00-0.23); BASOPHILS PERCENT AUTO 1 % (0-2); EOSINOPHILS ABSOLUTE AUTO 0.05 K/mm3 (0.00-0.68); EOSINOPHILS PERCENT AUTO 1 % (0-6); Hematocrit 42.3 % (37.0-53.0); Hemoglobin 14.5 g/dL (13.5-17.5); IMMATURE GRAN ABSOLUTE AUTO 0.02 K/mm3 (0.00-0.10); IMMATURE GRAN PERCENT AUTO 0 % (0-1); LYMPHOCYTES ABSOLUTE AUTO 1.31 K/mm3 (0.84-5.20); LYMPHOCYTES PERCENT AUTO 15 % (21-46); MONOCYTES ABSOLUTE AUTO 0.46 K/mm3 (0.16-1.47); MONOCYTES PERCENT AUTO 5 % (4-13); Mean Corpuscular HGB 30.3 pg (26.0-34.0); Mean Corpuscular HGB Conc 34.3 g/dL (31.5-36.5); Mean Corpuscular Volume 88 fL (80-100); Mean Platelet Volume 9.9 fL (9.1-12.4); NEUTROPHILS ABSOLUTE AUTO 6.69 K/mm3 (1.96-9.15); NEUTROPHILS PERCENT AUTO 78 % (41-73); Platelet Count 237 K/mm3 (150-400); RDW Coefficient Variation 14.6 % (11.7-14.2); RDW Standard Deviation 47.2 fL (35.1-46.3); Red Blood Cell Count 4.79 M/mm3 (4.30-5.90); White Blood Cell Count 8.59 K/mm3 (4.00-11.30)
[2020-10-24 13:10] LABS: Alanine Aminotransfer (ALT/SGP 41 U/L (12-78); Albumin, Blood 3.5 g/dL (3.4-5.0); Albumin/Globulin Ratio 0.9 (0.8-1.8); Alk Phos 104 U/L (50-136); Anion Gap 4 mmol/L (6-16); Aspartate Aminotrans (AST/SGOT 20 U/L (12-37); Bilirubin, Total 1.6 mg/dL (0.1-1.0); Blood Urea Nitrogen 27 mg/dL (8-24); Bun/Creatinine Ratio 28.3 (12.0-20.0); CO2, Blood 29 mmol/L (21-32); Chloride, Blood 100 mmol/L (98-108); Creatinine, Blood 0.95 mg/dL (0.60-1.20); Globulin, Blood 3.8 g/dL (2.2-4.0); Glomerular Filtration Rate >60 (60-); Glucose, Blood 299 mg/dL (70-99); Potassium, Blood 4.1 mmol/L (3.5-5.5); Sodium, Blood 133 mmol/L (136-145); Total Protein, Blood 7.3 g/dL (6.4-8.2); Troponin I 0.054 ng/mL (0.000-0.040)
[2020-10-24] MEDS ORDERED: PRAM.5 PO (16:37)
[2020-10-24 17:53] LABS: SARS-Cov-2 (COVID-19) PCR, MMC NEGATIVE (NEGATIVE)
[2020-10-24 22:49] LABS: U Amphetamine Screen DETECTED; U Barbituate Screen Not Detected; U Benzodiazapine Screen DETECTED; U Buprenorphine Screen Not Detected; U Cannabinoids Screen DETECTED; U Cocaine Screen Not Detected; U Methadone Screen Not Detected; U Methamphetamine Screen DETECTED; U Opiates Screen Not Detected; U Oxycodone Screen Not Detected; U Phencyclidine Screen Not Detected; U Propoxyphene Screen Not Detected
--- NOTE | 2020-10-25 01:19 | NUR ---
2100 PT CONTINUALLY TRYING TO GET OUT OF BED. PT UNSTEADY AND HIGH FALL RISK. PT FORGETS LIMITATIONS. PROVIDER CASPER CALLED AND ORDERED YAMIL VEST FOR PT. PT STATED HE UNDERSTOOD REASON FOR VEST.
[2020-10-25 03:06] LABS: BASOPHILS ABSOLUTE AUTO 0.06 K/mm3 (0.00-0.23); BASOPHILS PERCENT AUTO 1 % (0-2); EOSINOPHILS ABSOLUTE AUTO 0.16 K/mm3 (0.00-0.68); EOSINOPHILS PERCENT AUTO 2 % (0-6); Hemoglobin 14.1 g/dL (13.5-17.5); IMMATURE GRAN ABSOLUTE AUTO 0.02 K/mm3 (0.00-0.10); IMMATURE GRAN PERCENT AUTO 0 % (0-1); LYMPHOCYTES ABSOLUTE AUTO 1.83 K/mm3 (0.84-5.20); LYMPHOCYTES PERCENT AUTO 23 % (21-46); MONOCYTES ABSOLUTE AUTO 0.56 K/mm3 (0.16-1.47); MONOCYTES PERCENT AUTO 7 % (4-13); Mean Corpuscular HGB 29.9 pg (26.0-34.0); Mean Corpuscular HGB Conc 33.6 g/dL (31.5-36.5); Mean Corpuscular Volume 89 fL (80-100); Mean Platelet Volume 9.7 fL (9.1-12.4); NEUTROPHILS ABSOLUTE AUTO 5.51 K/mm3 (1.96-9.15); NEUTROPHILS PERCENT AUTO 68 % (41-73); Platelet Count 235 K/mm3 (150-400); RDW Coefficient Variation 14.8 % (11.7-14.2); RDW Standard Deviation 47.7 fL (35.1-46.3); Red Blood Cell Count 4.72 M/mm3 (4.30-5.90); White Blood Cell Count 8.14 K/mm3 (4.00-11.30)
[2020-10-25 03:26] LABS: Alanine Aminotransfer (ALT/SGP 33 U/L (12-78); Albumin, Blood 3.2 g/dL (3.4-5.0); Albumin/Globulin Ratio 0.9 (0.8-1.8); Alk Phos 94 U/L (50-136); Anion Gap 4 mmol/L (6-16); Aspartate Aminotrans (AST/SGOT 20 U/L (12-37); Bilirubin, Total 2.6 mg/dL (0.1-1.0); Blood Urea Nitrogen 23 mg/dL (8-24); Bun/Creatinine Ratio 26.3 (12.0-20.0); CO2, Blood 30 mmol/L (21-32); Calcium, Blood 8.2 mg/dL (8.5-10.1); Chloride, Blood 105 mmol/L (98-108); Creatinine, Blood 0.88 mg/dL (0.60-1.20); Globulin, Blood 3.5 g/dL (2.2-4.0); Glomerular Filtration Rate >60 (60-); Glucose, Blood 176 mg/dL (70-99); Magnesium, Blood 2.1 mg/dL (1.6-2.4); Potassium, Blood 3.5 mmol/L (3.5-5.5); Sodium, Blood 139 mmol/L (136-145); Total Protein, Blood 6.7 g/dL (6.4-8.2); Troponin I 0.062 ng/mL (0.000-0.040)
--- NOTE | 2020-10-25 04:10 | NUR ---
SUMMARY PT HAD NO REPORTED COMPLAINTS OF CX PAIN OR SOB. PT HAS PERIODS OF BEING CONFUSED AND TRYING TO GET OUT OF BED. PT IS UNSTEADY AND HIGH FALL RISK. PT FORGETS HIS LIMITATIONS DESPITED BEING REDIRECTED. PT WAS PLACED IN YAMIL VEST FOR HIS OWN SAFETY. PT HAS FREQUENT PERIODS SOMNOLENCE FOLLOWED BY BURSTS OF ERRATIC BEHAVIOR. BEHAVIOR WITNESSED IS FLAILING OF ARMS AND LEGS AND YELLING FOR HELP. WHEN ASKED WHAT IS WRONG PT REPORTS AND BAD DREAM. PT CURRENTLY SLEEPING IN NO DISTRESS. CALL LIGHT IN REACH AND BED ALARM ON.
--- NOTE | 2020-10-25 18:06 | NUR ---
PT IS A/O X4, CONTINENT, ON RA, AMBULATES TO THE RESTROOM WITH MINIMAL ASSIST. PT CAN HAVE POSTIONAL SOB AT TIMES, ON TELE AND DENIES ANY CHEST PAIN. PT TOLERATES CARDIAC DIET WELL, ACHS W/ COVERAGE INDICATED PER SS. PT WILL CALL OUT, AND MOAN OCCASIONALLY, APPEARS TO BE ANXIOUS STATES HE WANTS TO GO HOME. VSS CALL LIGHT WITHIN REACH.
[2020-10-26 04:43] LABS: BASOPHILS ABSOLUTE AUTO 0.09 K/mm3 (0.00-0.23); BASOPHILS PERCENT AUTO 1 % (0-2); EOSINOPHILS ABSOLUTE AUTO 0.16 K/mm3 (0.00-0.68); EOSINOPHILS PERCENT AUTO 2 % (0-6); Hematocrit 48.7 % (37.0-53.0); Hemoglobin 16.6 g/dL (13.5-17.5); IMMATURE GRAN ABSOLUTE AUTO 0.02 K/mm3 (0.00-0.10); IMMATURE GRAN PERCENT AUTO 0 % (0-1); LYMPHOCYTES ABSOLUTE AUTO 1.79 K/mm3 (0.84-5.20); LYMPHOCYTES PERCENT AUTO 24 % (21-46); MONOCYTES ABSOLUTE AUTO 0.68 K/mm3 (0.16-1.47); MONOCYTES PERCENT AUTO 9 % (4-13); Mean Corpuscular HGB 29.8 pg (26.0-34.0); Mean Corpuscular HGB Conc 34.1 g/dL (31.5-36.5); Mean Corpuscular Volume 87 fL (80-100); Mean Platelet Volume 9.5 fL (9.1-12.4); NEUTROPHILS ABSOLUTE AUTO 4.79 K/mm3 (1.96-9.15); NEUTROPHILS PERCENT AUTO 64 % (41-73); Platelet Count 282 K/mm3 (150-400); RDW Coefficient Variation 14.8 % (11.7-14.2); RDW Standard Deviation 47.2 fL (35.1-46.3); Red Blood Cell Count 5.57 M/mm3 (4.30-5.90); White Blood Cell Count 7.53 K/mm3 (4.00-11.30)
[2020-10-26 05:02] LABS: Alanine Aminotransfer (ALT/SGP 39 U/L (12-78); Albumin, Blood 3.3 g/dL (3.4-5.0); Albumin/Globulin Ratio 0.8 (0.8-1.8); Alk Phos 100 U/L (50-136); Anion Gap 3 mmol/L (6-16); Aspartate Aminotrans (AST/SGOT 30 U/L (12-37); Bilirubin, Total 2.9 mg/dL (0.1-1.0); Blood Urea Nitrogen 27 mg/dL (8-24); Bun/Creatinine Ratio 21.8 (12.0-20.0); CO2, Blood 33 mmol/L (21-32); Calcium, Blood 8.5 mg/dL (8.5-10.1); Chloride, Blood 101 mmol/L (98-108); Creatinine, Blood 1.24 mg/dL (0.60-1.20); Globulin, Blood 4.1 g/dL (2.2-4.0); Glomerular Filtration Rate >60 (60-); Glucose, Blood 187 mg/dL (70-99); Magnesium, Blood 2.1 mg/dL (1.6-2.4); Potassium, Blood 3.6 mmol/L (3.5-5.5); Sodium, Blood 137 mmol/L (136-145); Total Protein, Blood 7.4 g/dL (6.4-8.2)
--- NOTE | 2020-10-26 10:48 | NUR ---
PT DISCHARGED THE PT VERBALIZED UNDERSTANDING OF THE DC INSTRUCTIONS, THE PT WAS REMINDED TO CALL HIS PCP TO SCHEDULE A FOLLOW UPO APPOINTMENT ON WEDNESDAY, THE PT WAS TRANSFERED VIA WHEELCHAIR TO THE FRONT TO MEET HIS RIDE, THE PT APPEARED TO BE BREATHING EASILY AT THE TIME OF DC
== END 2020-10-26 10:30 | disposition home or self-care (01) | DRG 292 ==
LOC: ER 11:40 → MEDS 17:20
PROVIDERS: Emergency Medicine; Physician Assistant; ADMIT Internal Medicine
DX: I11.0 Hypertensive heart disease with heart failure (principal); F15.121 Other stimulant abuse with intoxication delirium; I24.8 Other forms of acute ischemic heart disease; I50.43 Acute on chronic combined systolic (congestive) and diastolic (congestive) heart failure; Z20.822 Contact with and (suspected) exposure to COVID-19; F17.210 Nicotine dependence, cigarettes, uncomplicated; E11.9 Type 2 diabetes mellitus without complications; I25.10 Atherosclerotic heart disease of native coronary artery without angina pectoris; I42.8 Other cardiomyopathies; R79.89 Other specified abnormal findings of blood chemistry; I25.2 Old myocardial infarction; Z95.5 Presence of coronary angioplasty implant and graft; Z88.8 Allergy status to other drugs, medicaments and biological substances; Z79.899 Other long term (current) drug therapy; Z79.84 Long term (current) use of oral hypoglycemic drugs; Z79.82 Long term (current) use of aspirin; Z79.51 Long term (current) use of inhaled steroids
CPT/HCPCS: 36415; 71046; 80053; 82947; 83735; 83880; 84484; 85025; 85379; 93005; 93010; 94640; 94660; 94762; 96374; 99284-25; A9270; J1650; J1940; J2060; U0004

== ENCOUNTER 2021-01-25 10:14 | Emergency (ER) | payer OTHER ==
[~2021-01-25] VITALS: Ht 175.3 cm; Wt 102.1 kg
[2021-01-25] MEDS ORDERED: CEPH500 PO (11:08)
[2021-01-25] MEDS ORDERED: Bactrim Ds Tab1 EACH PO (11:08)
== END 2021-01-25 11:29 | disposition home or self-care (01) ==
LOC: ER 10:14
DX: L02.411 Cutaneous abscess of right axilla (principal); I11.0 Hypertensive heart disease with heart failure; I50.22 Chronic systolic (congestive) heart failure; F17.210 Nicotine dependence, cigarettes, uncomplicated; E11.9 Type 2 diabetes mellitus without complications; Z88.8 Allergy status to other drugs, medicaments and biological substances
CPT/HCPCS: 10060; 99282-25

== ENCOUNTER 2021-06-26 12:33 | Emergency (ER) | payer MEDICARE ==
[~2021-06-26] VITALS: Ht 175.3 cm; Wt 106.6 kg
[~2021-06-26 12:33] MED LIST changes: +Bactrim Ds Tab1 EACH PO; +CEPH500 PO
[2021-06-26 13:34] LABS: BASOPHILS ABSOLUTE AUTO 0.05 K/mm3 (0.00-0.23); BASOPHILS PERCENT AUTO 1 % (0-2); EOSINOPHILS ABSOLUTE AUTO 0.06 K/mm3 (0.00-0.68); EOSINOPHILS PERCENT AUTO 1 % (0-6); Hematocrit 46.5 % (37.0-53.0); Hemoglobin 16.6 g/dL (13.5-17.5); IMMATURE GRAN ABSOLUTE AUTO 0.03 K/mm3 (0.00-0.10); IMMATURE GRAN PERCENT AUTO 0 % (0-1); LYMPHOCYTES ABSOLUTE AUTO 1.15 K/mm3 (0.84-5.20); LYMPHOCYTES PERCENT AUTO 16 % (21-46); MONOCYTES ABSOLUTE AUTO 0.51 K/mm3 (0.16-1.47); MONOCYTES PERCENT AUTO 7 % (4-13); Mean Corpuscular HGB 30.9 pg (26.0-34.0); Mean Corpuscular HGB Conc 35.7 g/dL (31.5-36.5); Mean Corpuscular Volume 87 fL (80-100); NEUTROPHILS ABSOLUTE AUTO 5.24 K/mm3 (1.96-9.15); NEUTROPHILS PERCENT AUTO 75 % (41-73); Platelet Count 239 K/mm3 (150-400); RDW Coefficient Variation 12.7 % (11.7-14.2); Red Blood Cell Count 5.37 M/mm3 (4.30-5.90); White Blood Cell Count 7.04 K/mm3 (4.00-11.30)
[2021-06-26 13:53] LABS: Alanine Aminotransfer (ALT/SGP 48 U/L (12-78); Albumin, Blood 3.8 g/dL (3.4-5.0); Albumin/Globulin Ratio 0.9 (0.8-1.8); Alk Phos 133 U/L (50-136); Anion Gap 7 mmol/L (6-16); Aspartate Aminotrans (AST/SGOT 28 U/L (12-37); Bilirubin, Total 1.5 mg/dL (0.1-1.0); Blood Urea Nitrogen 37 mg/dL (8-24); Bun/Creatinine Ratio 46.2 (12.0-20.0); CO2, Blood 27 mmol/L (21-32); Calcium, Blood 9.4 mg/dL (8.5-10.1); Chloride, Blood 94 mmol/L (98-108); Globulin, Blood 4.3 g/dL (2.2-4.0); Glomerular Filtration Rate >60 (60-); Glucose, Blood 586 mg/dL (70-99); Potassium, Blood 4.9 mmol/L (3.5-5.5); Sodium, Blood 128 mmol/L (136-145); Total Protein, Blood 8.1 g/dL (6.4-8.2); Troponin I 0.017 ng/mL (0.000-0.040)
== END 2021-06-26 17:10 | disposition home or self-care (01) ==
LOC: ER 12:33
PROVIDERS: Emergency Medicine
DX: E11.65 Type 2 diabetes mellitus with hyperglycemia (principal); I11.0 Hypertensive heart disease with heart failure; I50.9 Heart failure, unspecified; I25.10 Atherosclerotic heart disease of native coronary artery without angina pectoris; Z88.8 Allergy status to other drugs, medicaments and biological substances; Z79.84 Long term (current) use of oral hypoglycemic drugs; Z79.4 Long term (current) use of insulin; Z79.899 Other long term (current) drug therapy
CPT/HCPCS: 36415; 80053; 82947; 84484; 85025; 93005; 93010; 99284-25; J1815; J7030

== ENCOUNTER 2021-07-14 11:38 | Inpatient (IN) | payer MEDICARE ==
[~2021-07-14] VITALS: Ht 175.3 cm; Wt 100.0 kg
[2021-07-14 12:45] LABS: BASOPHILS ABSOLUTE AUTO 0.03 K/mm3 (0.00-0.23); BASOPHILS PERCENT AUTO 0 % (0-2); EOSINOPHILS ABSOLUTE AUTO 0.01 K/mm3 (0.00-0.68); EOSINOPHILS PERCENT AUTO 0 % (0-6); Hematocrit 53.1 % (37.0-53.0); Hemoglobin 18.6 g/dL (13.5-17.5); IMMATURE GRAN ABSOLUTE AUTO 0.03 K/mm3 (0.00-0.10); IMMATURE GRAN PERCENT AUTO 0 % (0-1); LYMPHOCYTES ABSOLUTE AUTO 0.88 K/mm3 (0.84-5.20); LYMPHOCYTES PERCENT AUTO 13 % (21-46); MONOCYTES ABSOLUTE AUTO 0.83 K/mm3 (0.16-1.47); MONOCYTES PERCENT AUTO 12 % (4-13); Mean Corpuscular HGB 30.7 pg (26.0-34.0); Mean Corpuscular Volume 88 fL (80-100); Mean Platelet Volume 9.7 fL (9.1-12.4); NEUTROPHILS ABSOLUTE AUTO 4.89 K/mm3 (1.96-9.15); NEUTROPHILS PERCENT AUTO 74 % (41-73); Platelet Count 270 K/mm3 (150-400); RDW Coefficient Variation 13.1 % (11.7-14.2); RDW Standard Deviation 42.3 fL (35.1-46.3); Red Blood Cell Count 6.06 M/mm3 (4.30-5.90); White Blood Cell Count 6.67 K/mm3 (4.00-11.30)
[2021-07-14 13:12] LABS: Alanine Aminotransfer (ALT/SGP 69 U/L (12-78); Albumin, Blood 4.1 g/dL (3.4-5.0); Albumin/Globulin Ratio 0.8 (0.8-1.8); Alk Phos 115 U/L (50-136); Anion Gap 13 mmol/L (6-16); Aspartate Aminotrans (AST/SGOT 65 U/L (12-37); Bilirubin, Total 2.3 mg/dL (0.1-1.0); Blood Urea Nitrogen 25 mg/dL (8-24); Bun/Creatinine Ratio 27.3 (12.0-20.0); CO2, Blood 24 mmol/L (21-32); Calcium, Blood 9.5 mg/dL (8.5-10.1); Chloride, Blood 93 mmol/L (98-108); Creatinine, Blood 0.92 mg/dL (0.60-1.20); Globulin, Blood 4.9 g/dL (2.2-4.0); Glomerular Filtration Rate >60 (60-); Glucose, Blood 412 mg/dL (70-99); Potassium, Blood 4.1 mmol/L (3.5-5.5); Sodium, Blood 130 mmol/L (136-145)
[2021-07-14 16:32] LABS: Anti-Xa UFH, PHA Monitoring <0.10 IU/mL; International Normalized Ratio 1.06; Prothrombin Time Results 11.1 Sec (9.7-11.5)
[2021-07-14 16:57] LABS: Influenza A, PCR NEGATIVE (NEGATIVE); Influenza B, PCR NEGATIVE (NEGATIVE); Resp Syncytial Virus, PCR NEGATIVE (NEGATIVE)
[2021-07-14 18:00] LABS: SARS-Cov-2 (COVID-19) PCR, MMC POSITIVE (NEGATIVE)
--- NOTE | 2021-07-15 00:43 | NUR ---
RECIEVED REPORT FROM JOSHUA SETHI RN, @ 2126. PATIENT ARRIVED TO ROOM 304 @ 2145 AND SELF TRANSFERED TO HOSPITAL BED. GOT PATIENT SITUATED IN ROOM AND COMPLETED ADMISSION.
[2021-07-15 03:08] LABS: U Amphetamine Screen Not Detected; U Barbituate Screen Not Detected; U Benzodiazapine Screen Not Detected; U Buprenorphine Screen Not Detected; U Cannabinoids Screen DETECTED; U Cocaine Screen Not Detected; U Methadone Screen Not Detected; U Methamphetamine Screen Not Detected; U Opiates Screen Not Detected; U Oxycodone Screen Not Detected; U Phencyclidine Screen Not Detected; U Propoxyphene Screen Not Detected
--- NOTE | 2021-07-15 04:14 | NUR ---
PATIENT HAS HAD AN UNEVENTFUL NIGHT. CONTINUES ON IVF & HEP DRIP. BP ELEATED AT START OF SHIFT BUT AT LAST VITALS CHECK ALL VITALS WNL. PATIENT DENIES HAVING ANY CURRENT CHEST PAIN. HE IS ALERT AND ORIENTED AND INDEPENDENT. PATIENT HAS BEEN NPO SINCE ADMIT TO THE FLOOR, WITH THE EXCEPTION OF ICE CHIPS. PLAN FOR ANGIO IN THE AM. CALL LIGHT WITHIN REACH.
[2021-07-15 05:50] LABS: BASOPHILS ABSOLUTE AUTO 0.03 K/mm3 (0.00-0.23); BASOPHILS PERCENT AUTO 1 % (0-2); EOSINOPHILS ABSOLUTE AUTO 0.04 K/mm3 (0.00-0.68); EOSINOPHILS PERCENT AUTO 1 % (0-6); Hematocrit 47.1 % (37.0-53.0); Hemoglobin 16.2 g/dL (13.5-17.5); IMMATURE GRAN ABSOLUTE AUTO 0.01 K/mm3 (0.00-0.10); IMMATURE GRAN PERCENT AUTO 0 % (0-1); LYMPHOCYTES PERCENT AUTO 21 % (21-46); MONOCYTES ABSOLUTE AUTO 0.79 K/mm3 (0.16-1.47); MONOCYTES PERCENT AUTO 13 % (4-13); Mean Corpuscular HGB 30.8 pg (26.0-34.0); Mean Corpuscular HGB Conc 34.4 g/dL (31.5-36.5); Mean Corpuscular Volume 90 fL (80-100); Mean Platelet Volume 9.5 fL (9.1-12.4); NEUTROPHILS PERCENT AUTO 64 % (41-73); Platelet Count 228 K/mm3 (150-400); RDW Coefficient Variation 13.4 % (11.7-14.2); RDW Standard Deviation 43.8 fL (35.1-46.3); Red Blood Cell Count 5.26 M/mm3 (4.30-5.90); White Blood Cell Count 6.07 K/mm3 (4.00-11.30)
[2021-07-15 06:07] LABS: Alanine Aminotransfer (ALT/SGP 50 U/L (12-78); Albumin, Blood 3.4 g/dL (3.4-5.0); Albumin/Globulin Ratio 0.9 (0.8-1.8); Alk Phos 89 U/L (50-136); Anion Gap 9 mmol/L (6-16); Aspartate Aminotrans (AST/SGOT 36 U/L (12-37); Bilirubin, Total 2.2 mg/dL (0.1-1.0); Blood Urea Nitrogen 28 mg/dL (8-24); Bun/Creatinine Ratio 29.4 (12.0-20.0); CO2, Blood 28 mmol/L (21-32); Calcium, Blood 8.3 mg/dL (8.5-10.1); Chloride, Blood 98 mmol/L (98-108); Creatinine, Blood 0.95 mg/dL (0.60-1.20); Globulin, Blood 3.8 g/dL (2.2-4.0); Glomerular Filtration Rate >60 (60-); Glucose, Blood 274 mg/dL (70-99); Potassium, Blood 3.6 mmol/L (3.5-5.5); Sodium, Blood 135 mmol/L (136-145); Total Protein, Blood 7.2 g/dL (6.4-8.2)
--- NOTE | 2021-07-15 09:50 | NUR ---
PATIENT ARRIVED TO HEART CENTER PROCEDURE ROOM. A&O. DENIES CHEST PAIN. TR BAND IN PLACE. SITE SOFT AND NONTENDER NO HEMATOMA, NO BLEEDING.
--- NOTE | 2021-07-15 11:54 | NUR ---
PATIENT SITTING UP IN BED EATING LUNCH. TR BAND IN PLACE SITE SOFT AND NONTENDER. NO HEMATOMA, NO BLEEDING.
--- NOTE | 2021-07-15 13:15 | NUR ---
PATIENT TRANSFERRED TO [facility] VIA WHEEL CHAIR. DENIES CHEST PAIN. TR BAND IN PLACE. NO HEMATOMA, NO BLEEDING.
[2021-07-15] MEDS ORDERED: CLOP75 PO (15:26)
--- NOTE | 2021-07-15 16:43 | NUR ---
DISCHARGE INSTRUCTIONS REVIEWED WITH PT, INCLUDING MEDICATION LIST, NEW PRESCRIPTIONS, APPOINTMENT INSTRUCTIONS AND EDUCATION. PT HAS NO QUESTIONS OR CONCERNS AT THIS TIME. IV REMOVED, CATHETER INTACT. PT CALLED A FAMILY MEMBER FOR A RIDE HOME, AFTER THIS RN EDUCATED HIM ABOUT NO DRIVING AFTER THE ANGIOGRAM PROCEDURE FOR 24HRS. PT VOICED UNDERSTANDING. ALL BELONGINGS TO BE SENT WITH PT. NO FURTHER DISCHARGE NEEDS IDENTIFIED AT THIS TIME.
== END 2021-07-15 16:58 | disposition home or self-care (01) | DRG 177 ==
LOC: ER 11:38 → ERHOLD 20:16 → MEDS 20:16 → PCU 07-15 09:15
PROVIDERS: Emergency Medicine; Nurse Practitioner Acute Care; Physician Assistant; ADMIT Internal Medicine
PROC: B2111ZZ Fluoroscopy of Multiple Coronary Arteries using Low Osmolar Contrast (ICD-10-PCS; principal; 2021-07-15)
DX: U07.1 COVID-19 (principal); I21.A1 Myocardial infarction type 2; I50.42 Chronic combined systolic (congestive) and diastolic (congestive) heart failure; E11.9 Type 2 diabetes mellitus without complications; Z79.899 Other long term (current) drug therapy; G25.81 Restless legs syndrome; J44.9 Chronic obstructive pulmonary disease, unspecified; E78.5 Hyperlipidemia, unspecified; Z95.5 Presence of coronary angioplasty implant and graft; I25.10 Atherosclerotic heart disease of native coronary artery without angina pectoris; F15.10 Other stimulant abuse, uncomplicated; Z91.14 Patient's other noncompliance with medication regimen; Z98.890 Other specified postprocedural states; I25.2 Old myocardial infarction; Z79.4 Long term (current) use of insulin
CPT/HCPCS: 0241U; 36415; 71045; 76937; 80053; 82947; 83735; 83880; 84484; 85025; 85520; 85610; 93005; 93010; 93306; 93454; 96365; 96366; 96376; 99152; 99153; 99285-25; A9270; C1769; C1887; C1894; J1644; J1815; J2250; J3010; J7030; J7050; M0247; Q9967

== ENCOUNTER 2021-08-10 22:39 | Emergency (ER) | payer MEDICARE ==
[~2021-08-10] VITALS: Ht 175.3 cm; Wt 102.1 kg
[~2021-08-10 22:39] MED LIST changes: +CLOP75 PO
[2021-08-10 23:11] LABS: BASOPHILS ABSOLUTE AUTO 0.06 K/mm3 (0.00-0.23); BASOPHILS PERCENT AUTO 1 % (0-2); EOSINOPHILS ABSOLUTE AUTO 0.14 K/mm3 (0.00-0.68); EOSINOPHILS PERCENT AUTO 2 % (0-6); Hematocrit 42.4 % (37.0-53.0); Hemoglobin 14.6 g/dL (13.5-17.5); IMMATURE GRAN ABSOLUTE AUTO 0.02 K/mm3 (0.00-0.10); IMMATURE GRAN PERCENT AUTO 0 % (0-1); LYMPHOCYTES ABSOLUTE AUTO 1.56 K/mm3 (0.84-5.20); LYMPHOCYTES PERCENT AUTO 19 % (21-46); MONOCYTES ABSOLUTE AUTO 0.68 K/mm3 (0.16-1.47); MONOCYTES PERCENT AUTO 8 % (4-13); Mean Corpuscular HGB 30.9 pg (26.0-34.0); Mean Corpuscular HGB Conc 34.4 g/dL (31.5-36.5); Mean Corpuscular Volume 90 fL (80-100); Mean Platelet Volume 9.5 fL (9.1-12.4); NEUTROPHILS ABSOLUTE AUTO 5.65 K/mm3 (1.96-9.15); NEUTROPHILS PERCENT AUTO 70 % (41-73); Platelet Count 221 K/mm3 (150-400); RDW Coefficient Variation 12.8 % (11.7-14.2); RDW Standard Deviation 42.2 fL (35.1-46.3); Red Blood Cell Count 4.72 M/mm3 (4.30-5.90); White Blood Cell Count 8.11 K/mm3 (4.00-11.30)
[2021-08-10 23:26] LABS: Alanine Aminotransfer (ALT/SGP 42 U/L (12-78); Albumin, Blood 3.6 g/dL (3.4-5.0); Alk Phos 82 U/L (50-136); Anion Gap 5 mmol/L (6-16); Aspartate Aminotrans (AST/SGOT 15 U/L (12-37); Bilirubin, Total 1.4 mg/dL (0.1-1.0); Blood Urea Nitrogen 23 mg/dL (8-24); Bun/Creatinine Ratio 25.6 (12.0-20.0); CO2, Blood 32 mmol/L (21-32); Calcium, Blood 8.9 mg/dL (8.5-10.1); Chloride, Blood 101 mmol/L (98-108); Globulin, Blood 3.7 g/dL (2.2-4.0); Glomerular Filtration Rate >60 (60-); Glucose, Blood 365 mg/dL (70-99); Potassium, Blood 4.3 mmol/L (3.5-5.5); Sodium, Blood 138 mmol/L (136-145); Total Protein, Blood 7.3 g/dL (6.4-8.2)
[2021-08-11] MEDS ORDERED: Isosorbide Mono30 MG PO (02:41)
== END 2021-08-11 03:05 | disposition home or self-care (01) ==
LOC: ER 22:39
PROVIDERS: Emergency Medicine
DX: I25.119 Atherosclerotic heart disease of native coronary artery with unspecified angina pectoris (principal); I11.0 Hypertensive heart disease with heart failure; I50.22 Chronic systolic (congestive) heart failure; I25.2 Old myocardial infarction; F17.210 Nicotine dependence, cigarettes, uncomplicated; E11.9 Type 2 diabetes mellitus without complications; Z79.899 Other long term (current) drug therapy
CPT/HCPCS: 36415; 71045; 80053; 84484; 85025; 93005; 93010; 99285-25; A9270

== ENCOUNTER 2021-09-26 15:36 | Inpatient (IN) | payer MEDICARE ==
[~2021-09-26] VITALS: Ht 175.3 cm; Wt 102.9 kg
[~2021-09-26 15:36] MED LIST changes: +INSULANPEN SC; +Isosorbide Mono30 MG PO; -SEMGLEE PE100 UNIT/1 SC
[2021-09-26 16:13] LABS: BASOPHILS ABSOLUTE AUTO 0.05 K/mm3 (0.00-0.23); BASOPHILS PERCENT AUTO 1 % (0-2); EOSINOPHILS ABSOLUTE AUTO 0.05 K/mm3 (0.00-0.68); EOSINOPHILS PERCENT AUTO 1 % (0-6); Hematocrit 47.8 % (37.0-53.0); Hemoglobin 17.1 g/dL (13.5-17.5); IMMATURE GRAN ABSOLUTE AUTO 0.03 K/mm3 (0.00-0.10); IMMATURE GRAN PERCENT AUTO 0 % (0-1); LYMPHOCYTES ABSOLUTE AUTO 1.73 K/mm3 (0.84-5.20); LYMPHOCYTES PERCENT AUTO 17 % (21-46); MONOCYTES ABSOLUTE AUTO 0.73 K/mm3 (0.16-1.47); MONOCYTES PERCENT AUTO 7 % (4-13); Mean Corpuscular HGB 31.3 pg (26.0-34.0); Mean Corpuscular HGB Conc 35.8 g/dL (31.5-36.5); Mean Corpuscular Volume 88 fL (80-100); Mean Platelet Volume 9.6 fL (9.1-12.4); NEUTROPHILS ABSOLUTE AUTO 7.62 K/mm3 (1.96-9.15); NEUTROPHILS PERCENT AUTO 75 % (41-73); Platelet Count 350 K/mm3 (150-400); RDW Coefficient Variation 12.7 % (11.7-14.2); RDW Standard Deviation 40.5 fL (35.1-46.3); Red Blood Cell Count 5.46 M/mm3 (4.30-5.90); White Blood Cell Count 10.21 K/mm3 (4.00-11.30)
[2021-09-26 16:47] LABS: Albumin, Blood 3.7 g/dL (3.4-5.0); Albumin/Globulin Ratio 0.8 (0.8-1.8); Bilirubin, Total 2.2 mg/dL (0.1-1.0); Bun/Creatinine Ratio 31.1 (12.0-20.0); Calcium, Blood 10.1 mg/dL (8.5-10.1); Creatinine, Blood 1.48 mg/dL (0.60-1.20); Globulin, Blood 4.4 g/dL (2.2-4.0); Total Protein, Blood 8.1 g/dL (6.4-8.2)
[2021-09-26 18:46] LABS: Anti-Xa UFH, PHA Monitoring <0.10 IU/mL; International Normalized Ratio 1.09; Prothrombin Time Results 11.4 Sec (9.7-11.5)
[2021-09-26 19:21] LABS: CPK Creatine Kinase 149 U/L (39-308)
[2021-09-26] MEDS ORDERED: CLIN150 PO (21:35)
[2021-09-26 22:13] LABS: Source, Urine Clean Catch
[2021-09-26 22:16] LABS: Bilirubin, Urine Neg (Neg); Blood, Urine Neg (Neg); Glucose Qualitative, Urine 3+ (Neg); Ketones, Urine 1+ (Neg); Leukocyte Esterase, Urine Neg (Neg); Nitrite, Urine Neg (Neg); Protein, Urine 2+ (Neg); Specific Gravity, Urine 1.025 (1.003-1.022); Urobilinogen, Urine NORM (Normal)
[2021-09-26 22:33] LABS: Appearance, Urine Clear (Clear); Color, Urine Yellow (P-Yellow)
[2021-09-26 22:36] LABS: Amorphous Light (0-Heavy); Bacteria Not Seen /hpf; Hyaline Casts 0-2 /lpf (0-2); Red Blood Cells, Urine Not Seen /hpf (0-2); Squamous Epithelial Cells Rare /hpf (Few); White Blood Cells, Urine Rare /hpf (0-5)
[2021-09-26 22:37] LABS: U Amphetamine Screen Not Detected; U Barbituate Screen Not Detected; U Benzodiazapine Screen Not Detected; U Buprenorphine Screen Not Detected; U Cannabinoids Screen DETECTED; U Cocaine Screen Not Detected; U Methadone Screen Not Detected; U Methamphetamine Screen Not Detected; U Opiates Screen Not Detected; U Oxycodone Screen Not Detected; U Phencyclidine Screen Not Detected; U Propoxyphene Screen Not Detected
[2021-09-27 02:13] LABS: BASOPHILS ABSOLUTE AUTO 0.06 K/mm3 (0.00-0.23); BASOPHILS PERCENT AUTO 1 % (0-2); EOSINOPHILS ABSOLUTE AUTO 0.12 K/mm3 (0.00-0.68); EOSINOPHILS PERCENT AUTO 1 % (0-6); Hematocrit 45.4 % (37.0-53.0); Hemoglobin 15.7 g/dL (13.5-17.5); IMMATURE GRAN ABSOLUTE AUTO 0.02 K/mm3 (0.00-0.10); IMMATURE GRAN PERCENT AUTO 0 % (0-1); LYMPHOCYTES ABSOLUTE AUTO 2.54 K/mm3 (0.84-5.20); LYMPHOCYTES PERCENT AUTO 31 % (21-46); MONOCYTES ABSOLUTE AUTO 0.59 K/mm3 (0.16-1.47); MONOCYTES PERCENT AUTO 7 % (4-13); Mean Corpuscular HGB 30.7 pg (26.0-34.0); Mean Corpuscular HGB Conc 34.6 g/dL (31.5-36.5); Mean Corpuscular Volume 89 fL (80-100); Mean Platelet Volume 9.4 fL (9.1-12.4); NEUTROPHILS ABSOLUTE AUTO 4.95 K/mm3 (1.96-9.15); NEUTROPHILS PERCENT AUTO 60 % (41-73); Platelet Count 307 K/mm3 (150-400); RDW Coefficient Variation 12.6 % (11.7-14.2); RDW Standard Deviation 41.3 fL (35.1-46.3); Red Blood Cell Count 5.12 M/mm3 (4.30-5.90); White Blood Cell Count 8.28 K/mm3 (4.00-11.30)
[2021-09-27 02:34] LABS: Albumin, Blood 3.2 g/dL (3.4-5.0); Albumin/Globulin Ratio 0.8 (0.8-1.8); Bilirubin, Total 1.9 mg/dL (0.1-1.0); Calcium, Blood 9.2 mg/dL (8.5-10.1); Creatinine, Blood 1.31 mg/dL (0.60-1.20); Potassium, Blood 3.8 mmol/L (3.5-5.5); Total Protein, Blood 7.2 g/dL (6.4-8.2)
--- NOTE | 2021-09-27 05:55 | NUR ---
SHIFT SUMMARY ASSUMED CARE OF PT AT 2200. PT IS A/OX4. HEART SOUNDS IRREGULAR. TELE SHOWS AFIB WITH THE RATE BETWEEN 110-150BPM. WHILE WALKING AROUND THE UNIT, RATE WAS BETWEEN 130-150. WHILE RESTING OR TALKING BETWEEN 120-130 BPM. HOSPITALIST WAS NOTIFIED OF INCREASED RATE, ORDERED 5MG OF LOPRESSOR WITH NO EFFECT. SECOND CALL WAS MADE AND HE REVEIWED THE CHART AND ORDERED DIGOXIN. THIS SEEMED TO HELP BUT PT ALSO GOT HIS NIGHT TIME MEDICATIONS AND FELL ASLEEP, WHICH KEPT HIS RATE BETWEEN 100-110 BPM. LUNG SOUNDS DIMINISHED AT THE BASES. PT WAS INDENDENT TO BATHROOM. PT ADMITTED TO THIS NURSE TO ABUSING DRUGS BUT HE SAID HE DOES NOT DO THIS SINCE HIS . UA ONLY POSITIVE FOR MARIJUANA. PT HOPES TO LEAVE TODAY TO GO BACK [place]. PT IS VERY ABRUPT AND CURSES BUT NOT TOWARDS STAFF.
--- NOTE | 2021-09-27 11:03 | NUR ---
UPDATE: Pt c/o 01/14 chest pain that he describes as as pressure. BP soft at 91/64 with MAP of 77. HR shows afib in the 120-130's. EKG being done. Physician notified. Orders obtained. Will follow through and continue to monitor.
--- NOTE | 2021-09-27 18:33 | NUR ---
SHIFT SUMMARY PT AXO, IRRITABLE THOUGH COOPERATIVE WITH CARE. THROUGHOUT SHIFT, PT HEART RATE ELEVATES HIGHER WITH TALKING AND ANY ACTIVITY. 110'S ONLY WHEN SLEEPING. AT 1200 PT HEART RATE SUSTAINING IN 140'S. PT ENCOURAGED TO RELAX TO ATTEMPT TO BRING HEART RATE DOWN. DR MCGOVERN NOTIFED AT 1346, NEW ORDERS AND MEDICATED PER EMAR. HR DOWN TO 120'S UNTIL AROUND DINNER TIME. DR MCGOVERN AGAIN NOTIFIED OF HEART RATE SUSTAINING IN 140'S AT 1813, NEW ORDERS, AWAITING MEDICATION AT THIS TIME. PHARMACY CALLED THIS NURSE TO QUESTION NEW ORDERS TO WHICH THIS NURSE REFERRED PHARMACY TO DR. MCGOVERN WITH QUESTIONS. PT COMPLAINED OF RESTLESS LEGS, MIRAPEX ORDER CHANGED TO ONCE DAILY PRN, SEE EMAR, PER DR MCGOVERN. BED IN LOW POSITION, CALL LIGHT WITHIN REACH. PT UP AD MARICRUZ WITH STEADY GAIT. HEPARIN DRIP INFUSING PER EMAR.
[2021-09-28 04:47] LABS: Hematocrit 43.6 % (37.0-53.0); Hemoglobin 14.9 g/dL (13.5-17.5); Mean Corpuscular HGB 30.5 pg (26.0-34.0); Mean Corpuscular HGB Conc 34.2 g/dL (31.5-36.5); Mean Corpuscular Volume 89 fL (80-100); Mean Platelet Volume 9.6 fL (9.1-12.4); Platelet Count 275 K/mm3 (150-400); RDW Coefficient Variation 12.6 % (11.7-14.2); RDW Standard Deviation 41.4 fL (35.1-46.3); Red Blood Cell Count 4.88 M/mm3 (4.30-5.90); White Blood Cell Count 6.71 K/mm3 (4.00-11.30)
[2021-09-28 05:01] LABS: Anion Gap 5 mmol/L (6-16); Blood Urea Nitrogen 39 mg/dL (8-24); Bun/Creatinine Ratio 32.8 (12.0-20.0); CO2, Blood 29 mmol/L (21-32); Calcium, Blood 8.5 mg/dL (8.5-10.1); Chloride, Blood 101 mmol/L (98-108); Creatinine, Blood 1.19 mg/dL (0.60-1.20); Glomerular Filtration Rate >60 (60-); Glucose, Blood 390 mg/dL (70-99); Phosphorus, Blood 2.4 mg/dL (2.5-4.9); Potassium, Blood 4.3 mmol/L (3.5-5.5); Sodium, Blood 135 mmol/L (136-145)
--- NOTE | 2021-09-28 05:38 | NUR ---
SHIFT SUMMARY ASSUMD CARE OF PT AT 1900. PT IS A/OX4. HEART SOUNDS IRREGULAR. PT RATE HAS BEEN BETWEEN 100 WHILE SLEEPING TO 150S WHILE WALKING. PT TAKES FREQUENT WALKS AROUND THE UNIT AND DOWN TO THE VENDING MACHINE. LUNG SOUNDS CLEAR. NO OTHER COMPLAINTS. PT WANTS TO GO HOME BUT UNDERSTANDS HE NEEDS TO STAY TO BE OBSERVED. PT EXPRESSED THAT HE WAS SCARED TO . PT DID NOT SLEEP WELL DURING THE NIGHT, HE WAS UP AROUND THE UNIT OFTEN.
--- NOTE | 2021-09-28 16:55 | NUR ---
Shift Summary Pt remains A&Ox4. VSS with exception to HR- remains labile,=150s nonsustaining with exertion. Afebrile. No c/o pain. AUO. BMx1. Tolerating current diet. diet. Ambulates frequently around unit independently. Frequent rounds to ensure pt safety. Pt in no apparent distress at this time. Will continue to monitor until transfer of care to oncoming RN.
--- NOTE | 2021-09-28 19:51 | NUR ---
CARE ASSUMPTION NOTE JESS SILVA AND ROBEL QUICK ASSUMED CARE OF PATIENT AT 1900. REPORT TAKEN FROM TIA RN
--- NOTE | 2021-09-29 04:08 | NUR ---
SHIFT SUMMARY PATIENT A&O X4. NO COMPLAINTS OF PAIN DURING THE SHIFT. INDEPENDENT FOR ALL ADLS. AFEBRILE. SBP 100-140S DEPENDENT ON ACTIVITY LEVEL. AFIB ON TELE WITH HR FLUCTUATING BETWEEN 80 AND 140S. NO COMPLAINTS OF CP. ON RA WITH O2 SATS >95%. PATIENT REQUESTED ELECTRIC RAZOR AND WAS ABLE TO SHAVE HIS FACE. ABLE TO REPOSITION SELF IN BED. PATIENT VERBALIZED BOREDOM AND FRUSTRATION WITH WANTING TO GO HOME AND GETTING FINGERSTICKS AND VITALS CHECKED, BUT REMAINED CALM AND COOPERATIVE WITH STAFF. CALL LIGHT WITHIN REACH AND BED IN LOWEST POSITION. FREQUENT CHECKS FOR SAFETY. WILL CONTINUE TO MONITOR.
[2021-09-29 05:47] LABS: Albumin, Blood 2.9 g/dL (3.4-5.0); Anion Gap 3 mmol/L (6-16); Blood Urea Nitrogen 26 mg/dL (8-24); Bun/Creatinine Ratio 25.5 (12.0-20.0); CO2, Blood 31 mmol/L (21-32); Calcium, Blood 8.3 mg/dL (8.5-10.1); Chloride, Blood 105 mmol/L (98-108); Creatinine, Blood 1.02 mg/dL (0.60-1.20); Glomerular Filtration Rate >60 (60-); Glucose, Blood 206 mg/dL (70-99); Sodium, Blood 139 mmol/L (136-145)
--- NOTE | 2021-09-29 10:02 | NUR ---
UPDATE 09:43- While ambulating, pt c/o sharp, chest pain. Afib with FV=468's 09:44- Nitro x1 (dose 1 of 3) given, continues to c/o sharp chest pain 09:45- EKG completed, refusing supplemental O2 09:51- Nitro x1 (dose 2 of 3) given, chest pain slightly improved per pt 09:53- MD notified, en route to bedside
--- NOTE | 2021-09-29 14:46 | NUR ---
MD NOTIFICATION MD NOTIFIED REGARDING SBP <90 WHILE ON AMIO GTT. INSTRUCTED BY MD TO CONTINUE AMIO GTT AT THIS TIME UNLESS SBP SUSTAINS <80.
--- NOTE | 2021-09-29 17:10 | NUR ---
Shift Summary Pt remains A&Ox4. VSS with exception to HR- amio gtt started, cardiac meds adjusted by cardiology. Afebrile. No c/o pain. AUO. No BM. Tolerating current diet. Frequent rounds to ensure pt safety. Pt in no apparent distress at this time. Will continue to monitor until transfer of care to oncoming RN.
--- NOTE | 2021-09-29 20:02 | NUR ---
ASSUMPTION OF CARE JESS SILVA AND ALVAREZ RN ASSUMED CARE OF PATIENT AT 1900. REPORT TAKEN FROM ANDREIA RN.
--- NOTE | 2021-09-30 04:12 | NUR ---
SHIFT SUMMARY PATIENT IS A&O X4. IRRITATED BUT COOPERATIVE WITH CARE. DENIES CP DURING SHIFT. AFIB WITH HR 80-100S, SBP 100-120S. O2 SATS >97% ON RA. DENIES SOB. AMIODARONE GTT INFUSING IN RAC AT 17.3 UNITS/KG/HR. PATIENT IS INDEPENDENT WITH ALL ADLS. UNDERSTANDS HOW TO CALL STAFF FOR ASSISTANCE. FREQUENTLY WALKS AROUND THE UNIT. PATIENT HAS BEEN NPO SINCE MIDNIGHT INCASE OF NEED FOR CARDIOVERSION THIS AM. EKG TO BE PERFORMED 09/30 @0500. FREQUENT CHECKS FOR SAFETY. NO COMPLAINTS OF PAIN. CALL LIGHT WITHIN REACH AND BED IN LOWEST POSITION. WILL CONTINUE TO MONITOR
--- NOTE | 2021-09-30 16:50 | NUR ---
Shift Summary Pt remains A&Ox4. VSS with exception to HR- PO Amio added to medication regimen, successfully transitioned off Amio gtt. Afebrile. No c/o pain. AUO. BM x2. Tolerating current diet. Echo completed. Frequent rounds to ensure pt safety. Pt in no apparent distress at this time. Will continue to monitor until transfer of care to oncoming RN.
--- NOTE | 2021-09-30 19:54 | NUR ---
CARE ASSUMPTION NOTE JESS SILVA AND ROBEL QUICK ASSUMED CARE FOR PATIENT AT 1900. REPORT TAKEN FROM ANDREIA QIUCK.
--- NOTE | 2021-10-01 04:49 | NUR ---
SHIFT SUMMARY PATIENT A&O X4. AGGITATED WITH CARE/FOOD; CURSES FREQUENTLY BUT NOT DIRECTED AT STAFF. AFIB ON TELE WITH HR RANGING FROM 80-130S DEPENDENT ON ACTIVITY. HR INCREASES WHEN PATIENT WALKS AROUND UNIT; WHILE RESTING HR HAS BEEN IN THE 80S. SBP 120S. PATIENT TRANSITIONED TO AMIODARONE PO FROM GTT. ECHO DONE 09/30 SHOWING PATIENTS EF AT 10-15%. PAIENT ON RA WITH SATS >98%. NO COMPLAINTS OF CP. COMPLAINS OF SLIGHT SOB WITH EXERTION, BUT DOES NOT DESAT. RAC IV DRAWS AND FLUSHES WELL. INDEPENDENT FOR ADLS. PATIENT LIKELY TO DC TODAY 10/01. CALL LIGHT WITHIN REACH AND BED IN LOWEST POSITION. WILL CONTINUE TO MONITOR.
[2021-10-01] MEDS ORDERED: AMIODARONE HCL200 M1 PO (10:12)
[2021-10-01] MEDS ORDERED: XARELTO20 MG PO (10:13)
[2021-10-01] MEDS ORDERED: DIGOX125 MC1 PO (10:13)
[2021-10-01] MEDS ORDERED: HUMALOG KW100 UNIT/1 SC (10:14)
--- NOTE | 2021-10-01 10:50 | NUR ---
PT DISCHARGE TO HOME TODAY WITH DISCHARGE ORDERS, DR MCGOVERN SAW PT TODAY PRIOR TO DISCHARGE, HRR HAS BEEN CONTROLLED 90-100'S ON TELE DENIES ANY CHEST PAIN BP SYSTOLIC 115'S, SAT ABOVE 95% ON RA, AFEBRILE. PT HAS BEEN INDEPENDENT IN THE ROOM AMBULATING IN THE UNIT. NO ISSUES PRIOR TO DISCHARGE ALL NEW MEDICATIONS AND INSTRUCTIONS DISCLOSED WITH THE PT NO OTHER ISSUES REPORTED PRESCRIPTIONS SENT TO [facility], ALL BELONGINGS SENT WITH THE PATIENT ACCOMPANIED BY THIS RN FOR TRANSPORT
== END 2021-10-01 10:25 | disposition home or self-care (01) | DRG 309 ==
LOC: ER 15:36 → PCU 15:37
PROVIDERS: Internal Medicine; Pharmacist; Physician Assistant; ADMIT Internal Medicine
DX: I48.0 Paroxysmal atrial fibrillation (principal); I50.42 Chronic combined systolic (congestive) and diastolic (congestive) heart failure; E11.65 Type 2 diabetes mellitus with hyperglycemia; I11.0 Hypertensive heart disease with heart failure; I25.10 Atherosclerotic heart disease of native coronary artery without angina pectoris; I25.5 Ischemic cardiomyopathy; G25.81 Restless legs syndrome; Z86.16 Personal history of COVID-19; I25.2 Old myocardial infarction; I42.0 Dilated cardiomyopathy; J44.9 Chronic obstructive pulmonary disease, unspecified; E78.5 Hyperlipidemia, unspecified; F41.9 Anxiety disorder, unspecified; F17.210 Nicotine dependence, cigarettes, uncomplicated; Z95.5 Presence of coronary angioplasty implant and graft; Z98.890 Other specified postprocedural states; Z71.6 Tobacco abuse counseling; Z79.899 Other long term (current) drug therapy; Z79.82 Long term (current) use of aspirin; Z79.02 Long term (current) use of antithrombotics/antiplatelets
CPT/HCPCS: 36415; 71045; 76770; 80053; 80069; 81001; 82550; 82947; 83735; 83880; 84443; 84484; 85025; 85027; 85520; 85610; 85730; 93005; 93010; 94640; 94664; 94760; 94762; 96365; 96366; 96375; 96376; 99285-25; A9270; C8929; G0378; J0282; J1160; J1644; J1815; J7030; J7060; Q9957

== ENCOUNTER 2022-01-31 09:17 | Emergency (ER) | payer MEDICARE ==
[~2022-01-31] VITALS: Ht 175.3 cm; Wt 106.6 kg
[~2022-01-31 09:17] MED LIST changes: +AMIODARONE HCL200 M1 PO; +CLIN150 PO; +DIGOX125 MC1 PO; +HUMALOG KW100 UNIT/1 SC; +XARELTO20 MG PO
[2022-01-31 10:33] LABS: BASOPHILS ABSOLUTE AUTO 0.04 K/mm3 (0.00-0.23); BASOPHILS PERCENT AUTO 0 % (0-2); EOSINOPHILS ABSOLUTE AUTO 0.11 K/mm3 (0.00-0.68); EOSINOPHILS PERCENT AUTO 1 % (0-6); Hematocrit 41.3 % (37.0-53.0); Hemoglobin 14.1 g/dL (13.5-17.5); IMMATURE GRAN ABSOLUTE AUTO 0.02 K/mm3 (0.00-0.10); IMMATURE GRAN PERCENT AUTO 0 % (0-1); LYMPHOCYTES ABSOLUTE AUTO 1.13 K/mm3 (0.84-5.20); LYMPHOCYTES PERCENT AUTO 11 % (21-46); MONOCYTES ABSOLUTE AUTO 0.62 K/mm3 (0.16-1.47); MONOCYTES PERCENT AUTO 6 % (4-13); Mean Corpuscular HGB 30.9 pg (26.0-34.0); Mean Corpuscular HGB Conc 34.1 g/dL (31.5-36.5); Mean Corpuscular Volume 91 fL (80-100); Mean Platelet Volume 9.2 fL (9.1-12.4); NEUTROPHILS ABSOLUTE AUTO 8.76 K/mm3 (1.96-9.15); NEUTROPHILS PERCENT AUTO 82 % (41-73); Platelet Count 270 K/mm3 (150-400); RDW Coefficient Variation 13.2 % (11.7-14.2); RDW Standard Deviation 43.8 fL (35.1-46.3); Red Blood Cell Count 4.56 M/mm3 (4.30-5.90); White Blood Cell Count 10.68 K/mm3 (4.00-11.30)
[2022-01-31 10:49] LABS: Albumin/Globulin Ratio 1.1 (0.8-1.8); Bilirubin, Total 1.9 mg/dL (0.1-1.0); Bun/Creatinine Ratio 23.6 (12.0-20.0); Creatinine, Blood 1.1 mg/dL (0.60-1.20); Globulin, Blood 3.6 g/dL (2.2-4.0); Potassium, Blood 3.5 mmol/L (3.5-5.5); Total Protein, Blood 7.6 g/dL (6.4-8.2)
== END 2022-01-31 18:09 | disposition home or self-care (01) ==
LOC: ER 09:17
PROVIDERS: Physician Assistant
DX: K85.90 Acute pancreatitis without necrosis or infection, unspecified (principal); I11.0 Hypertensive heart disease with heart failure; I50.9 Heart failure, unspecified; E11.9 Type 2 diabetes mellitus without complications; I25.2 Old myocardial infarction; I25.10 Atherosclerotic heart disease of native coronary artery without angina pectoris; F17.210 Nicotine dependence, cigarettes, uncomplicated; Z88.8 Allergy status to other drugs, medicaments and biological substances; Z79.899 Other long term (current) drug therapy; Z79.82 Long term (current) use of aspirin; Z79.4 Long term (current) use of insulin; Z79.01 Long term (current) use of anticoagulants
CPT/HCPCS: 36415; 71045; 74177; 76705; 80053; 83690; 84484; 85025; 93005; 93010; A9270; J2270; Q9967

== ENCOUNTER 2022-06-20 12:47 | Emergency (ER) | payer MEDICARE ==
[~2022-06-20] VITALS: Ht 175.3 cm; Wt 108.9 kg
[2022-06-20] MEDS ORDERED: LIPITOR80 MG PO (13:30)
[2022-06-20] MEDS ORDERED: PLAVIX75 MG PO (13:30)
[2022-06-20] MEDS ORDERED: SULTRIDS PO (13:35)
== END 2022-06-20 13:35 | disposition home or self-care (01) ==
LOC: ER 12:47
DX: J39.1 Other abscess of pharynx (principal); E11.9 Type 2 diabetes mellitus without complications; I11.0 Hypertensive heart disease with heart failure; I25.2 Old myocardial infarction; I50.9 Heart failure, unspecified; Z79.899 Other long term (current) drug therapy; Z79.4 Long term (current) use of insulin; Z79.02 Long term (current) use of antithrombotics/antiplatelets
CPT/HCPCS: 99282

== ENCOUNTER 2022-09-05 20:52 | Emergency (ER) | payer MEDICARE ==
[~2022-09-05] VITALS: Ht 175.3 cm; Wt 106.6 kg
[~2022-09-05 20:52] MED LIST changes: +PLAVIX75 MG PO; +SULTRIDS PO
[2022-09-05 21:21] LABS: BASOPHILS ABSOLUTE AUTO 0.04 K/mm3 (0.00-0.23); BASOPHILS PERCENT AUTO 1 % (0-2); EOSINOPHILS ABSOLUTE AUTO 0.12 K/mm3 (0.00-0.68); EOSINOPHILS PERCENT AUTO 2 % (0-6); Hematocrit 41.9 % (37.0-53.0); Hemoglobin 14.1 g/dL (13.5-17.5); IMMATURE GRAN ABSOLUTE AUTO 0.02 K/mm3 (0.00-0.10); IMMATURE GRAN PERCENT AUTO 0 % (0-1); LYMPHOCYTES ABSOLUTE AUTO 1.54 K/mm3 (0.84-5.20); LYMPHOCYTES PERCENT AUTO 25 % (21-46); MONOCYTES ABSOLUTE AUTO 0.47 K/mm3 (0.16-1.47); MONOCYTES PERCENT AUTO 8 % (4-13); Mean Corpuscular HGB 30.6 pg (26.0-34.0); Mean Corpuscular HGB Conc 33.7 g/dL (31.5-36.5); Mean Corpuscular Volume 91 fL (80-100); Mean Platelet Volume 9.3 fL (9.1-12.4); NEUTROPHILS ABSOLUTE AUTO 4.04 K/mm3 (1.96-9.15); NEUTROPHILS PERCENT AUTO 65 % (41-73); Platelet Count 232 K/mm3 (150-400); RDW Coefficient Variation 13.2 % (11.7-14.2); RDW Standard Deviation 43.4 fL (35.1-46.3); Red Blood Cell Count 4.61 M/mm3 (4.30-5.90); White Blood Cell Count 6.23 K/mm3 (4.00-11.30)
[2022-09-05 21:39] LABS: Albumin, Blood 3.7 g/dL (3.4-5.0); Bilirubin, Total 1.5 mg/dL (0.1-1.0); Bun/Creatinine Ratio 25.2 (12.0-20.0); Calcium, Blood 9.3 mg/dL (8.5-10.1); Creatinine, Blood 1.19 mg/dL (0.60-1.20); Globulin, Blood 3.7 g/dL (2.2-4.0); International Normalized Ratio 1.3; Prothrombin Time Results 13.4 Sec (9.7-11.5); Total Protein, Blood 7.4 g/dL (6.4-8.2)
== END 2022-09-06 00:08 | disposition home or self-care (01) ==
LOC: ER 20:52
PROVIDERS: Student in an Organized Health Care Education/Training Program
DX: R07.89 Other chest pain (principal); I25.2 Old myocardial infarction; I11.0 Hypertensive heart disease with heart failure; I50.9 Heart failure, unspecified; E11.9 Type 2 diabetes mellitus without complications; I25.10 Atherosclerotic heart disease of native coronary artery without angina pectoris; F17.210 Nicotine dependence, cigarettes, uncomplicated; Z88.8 Allergy status to other drugs, medicaments and biological substances; Z79.4 Long term (current) use of insulin; Z79.899 Other long term (current) drug therapy
CPT/HCPCS: 36415; 71046; 80053; 83880; 84484; 85025; 85610; 93005; 93010; 99285-25

== ENCOUNTER 2022-09-30 10:58 | Emergency (ER) | payer MEDICARE ==
[~2022-09-30] VITALS: Ht 175.3 cm; Wt 102.1 kg
[2022-09-30 11:14] VITALS: BP 152/102
[2022-09-30] MEDS ORDERED: Amoxicillin875 MG PO (11:24)
== END 2022-09-30 11:35 | disposition home or self-care (01) ==
LOC: ER 10:58
DX: K04.7 Periapical abscess without sinus (principal); E11.9 Type 2 diabetes mellitus without complications; I11.0 Hypertensive heart disease with heart failure; I50.9 Heart failure, unspecified; I25.10 Atherosclerotic heart disease of native coronary artery without angina pectoris; I25.2 Old myocardial infarction; I48.91 Unspecified atrial fibrillation; F17.210 Nicotine dependence, cigarettes, uncomplicated; Z88.8 Allergy status to other drugs, medicaments and biological substances; Z79.4 Long term (current) use of insulin; Z79.01 Long term (current) use of anticoagulants; Z79.02 Long term (current) use of antithrombotics/antiplatelets; Z79.899 Other long term (current) drug therapy
CPT/HCPCS: 99283

== ENCOUNTER → 2022-11-18 | Outpatient (CLI) | payer MEDICARE ==
[~2022-11-18] MED LIST changes: +Amoxicillin875 MG PO
[2022-11-18 13:47] LABS: BASOPHILS ABSOLUTE AUTO 0.06 K/mm3 (0.00-0.23); BASOPHILS PERCENT AUTO 1 % (0-2); EOSINOPHILS PERCENT AUTO 1 % (0-6); Hematocrit 44.7 % (37.0-53.0); Hemoglobin 15.4 g/dL (13.5-17.5); IMMATURE GRAN ABSOLUTE AUTO 0.01 K/mm3 (0.00-0.10); IMMATURE GRAN PERCENT AUTO 0 % (0-1); LYMPHOCYTES ABSOLUTE AUTO 1.48 K/mm3 (0.84-5.20); LYMPHOCYTES PERCENT AUTO 21 % (21-46); MONOCYTES ABSOLUTE AUTO 0.49 K/mm3 (0.16-1.47); MONOCYTES PERCENT AUTO 7 % (4-13); Mean Corpuscular HGB 30.7 pg (26.0-34.0); Mean Corpuscular HGB Conc 34.5 g/dL (31.5-36.5); Mean Corpuscular Volume 89 fL (80-100); Mean Platelet Volume 9.5 fL (9.1-12.4); NEUTROPHILS ABSOLUTE AUTO 5.09 K/mm3 (1.96-9.15); NEUTROPHILS PERCENT AUTO 70 % (41-73); Platelet Count 293 K/mm3 (150-400); RDW Coefficient Variation 13.1 % (11.7-14.2); RDW Standard Deviation 42.4 fL (35.1-46.3); Red Blood Cell Count 5.01 M/mm3 (4.30-5.90); White Blood Cell Count 7.23 K/mm3 (4.00-11.30)
[2022-11-18 14:24] LABS: Alanine Aminotransfer (ALT/SGP 56 U/L (12-78); Albumin, Blood 4.1 g/dL (3.4-5.0); Albumin/Globulin Ratio 1.1 (0.8-1.8); Alk Phos 108 U/L (50-136); Anion Gap 5 mmol/L (6-16); Aspartate Aminotrans (AST/SGOT 39 U/L (12-37); Bilirubin, Total 2.3 mg/dL (0.1-1.0); Blood Urea Nitrogen 30 mg/dL (8-24); CHOL/HDL RATIO 2.4; CO2, Blood 32 mmol/L (21-32); Calcium, Blood 9.7 mg/dL (8.5-10.1); Chloride, Blood 98 mmol/L (98-108); Cholesterol 96 mg/dL (50-200); Globulin, Blood 3.8 g/dL (2.2-4.0); Glomerular Filtration Rate 69 (60-); Glucose, Blood 345 mg/dL (70-99); HDL Cholesterol 40 mg/dL (>39); LDL/HDL RATIO 1.1; Low Density Lipoprotein Chol 42 mg/dL (0-110); Potassium, Blood 3.8 mmol/L (3.5-5.5); Sodium, Blood 135 mmol/L (136-145); Total Protein, Blood 7.9 g/dL (6.4-8.2); Triglycerides 70 mg/dL (30-160); Very Low Density Lipoprot Chol 14 mg/dL (6-32)
== END | disposition home or self-care (01) ==
LOC: LAB 11:28 → LAB SHORT 11:28
PROVIDERS: Student in an Organized Health Care Education/Training Program
DX: E11.9 Type 2 diabetes mellitus without complications (principal)
CPT/HCPCS: 80053; 80061; 83036; 85025

== ENCOUNTER 2022-12-09 05:59 | Observation (INO) | payer MEDICARE ==
[~2022-12-09] VITALS: Ht 175.3 cm; Wt 97.0 kg
[2022-12-09 06:41] LABS: BASOPHILS ABSOLUTE AUTO 0.07 K/mm3 (0.00-0.23); BASOPHILS PERCENT AUTO 1 % (0-2); EOSINOPHILS ABSOLUTE AUTO 0.12 K/mm3 (0.00-0.68); EOSINOPHILS PERCENT AUTO 1 % (0-6); Hematocrit 40.7 % (37.0-53.0); Hemoglobin 14.4 g/dL (13.5-17.5); IMMATURE GRAN ABSOLUTE AUTO 0.02 K/mm3 (0.00-0.10); IMMATURE GRAN PERCENT AUTO 0 % (0-1); LYMPHOCYTES ABSOLUTE AUTO 2.19 K/mm3 (0.84-5.20); LYMPHOCYTES PERCENT AUTO 25 % (21-46); MONOCYTES ABSOLUTE AUTO 0.54 K/mm3 (0.16-1.47); MONOCYTES PERCENT AUTO 6 % (4-13); Mean Corpuscular HGB 30.6 pg (26.0-34.0); Mean Corpuscular HGB Conc 35.4 g/dL (31.5-36.5); Mean Corpuscular Volume 86 fL (80-100); NEUTROPHILS ABSOLUTE AUTO 5.73 K/mm3 (1.96-9.15); NEUTROPHILS PERCENT AUTO 66 % (41-73); Platelet Count 266 K/mm3 (150-400); RDW Coefficient Variation 13.1 % (11.7-14.2); RDW Standard Deviation 40.6 fL (35.1-46.3); Red Blood Cell Count 4.71 M/mm3 (4.30-5.90); White Blood Cell Count 8.67 K/mm3 (4.00-11.30)
[2022-12-09 07:11] LABS: Albumin, Blood 3.5 g/dL (3.4-5.0); Bilirubin, Total 1.6 mg/dL (0.1-1.0); Bun/Creatinine Ratio 23.5 (12.0-20.0); Calcium, Blood 9.4 mg/dL (8.5-10.1); Creatinine, Blood 1.32 mg/dL (0.60-1.20); Globulin, Blood 3.4 g/dL (2.2-4.0); Potassium, Blood 3.7 mmol/L (3.5-5.5); Total Protein, Blood 6.9 g/dL (6.4-8.2)
[2022-12-09 10:27] VITALS: BP 134/74
[2022-12-09] MEDS ORDERED: CLOP75 PO (12:16)
[2022-12-09] MEDS ORDERED: Lisinopril-Hct1 EAC4 PO (12:17)
[2022-12-09] MEDS ORDERED: Glucophage 500 mg PO (12:18)
[2022-12-09] MEDS ORDERED: METO50ER PO (12:19)
[2022-12-09] MEDS ORDERED: MIRAPEX0.25 M1 PO (12:20)
[2022-12-09] MEDS ORDERED: XARELTO10 M1 PO (12:21)
[2022-12-09] MEDS ORDERED: METF500 PO (12:55)
[2022-12-09] MEDS ORDERED: INSDET100 SC (12:59)
[2022-12-09 15:07] VITALS: BP 116/68
--- NOTE | 2022-12-09 17:03 | NUR ---
ER ADMIT Patient alert & oriented x4, admitted for CP. Plan is to do 2 day stresss test. Denies pain & discomfort at this time. Tele in place, sinus wallace, no events. Plan is to be NPO at midnight, and finish stress test tomorrow morning. Patient educated on ignition sources and risk of injury while oxygen is in use. Patient verbalizes understanding, and denies smoking. Vitals stable. Will continue plan of care.
[2022-12-09 19:29] VITALS: BP 124/79
[2022-12-10 04:21] VITALS: BP 137/76
--- NOTE | 2022-12-10 05:26 | NUR ---
SHIFT SUMMARY 62 YR M ADMITTED ON 12/09/22 FOR CHEST PAIN. FULL CODE. NO ACUTE CHANGES THIS SHIFT. NO C/O CHEST PAIN OR PRESSURE THIS SHIFT. PT HAS BEEN NPO SINCE MIDNIGHT IN ANTICIPATION OF PART 2 OF HIS STRESS TEST TODAY. HE IS PLEASANT AND COOPERATIVE WITH CARE AND IS INDEPENDANT IN THE ROOM.
[2022-12-10 06:15] LABS: Albumin, Blood 3.5 g/dL (3.4-5.0); Anion Gap 5 mmol/L (6-16); Blood Urea Nitrogen 30 mg/dL (8-24); Bun/Creatinine Ratio 20.5 (12.0-20.0); CO2, Blood 32 mmol/L (21-32); Calcium, Blood 8.9 mg/dL (8.5-10.1); Chloride, Blood 101 mmol/L (98-108); Creatinine, Blood 1.46 mg/dL (0.60-1.20); Glomerular Filtration Rate 54 (60-); Glucose, Blood 252 mg/dL (70-99); Potassium, Blood 3.9 mmol/L (3.5-5.5); Sodium, Blood 138 mmol/L (136-145)
--- NOTE | 2022-12-10 14:28 | NUR ---
DISCHARGE PT DENIES CP DURING SHIFT. SECOND PART OF STRESS TEST FINISHED. PT IND IN ROOM. DISCHARGE INSTRUCTIONS GONE OVER WITH PATIENT, DENIES FURTHER QUESTIONS. PT PLANS TO F/U WITH PCP AND CONTINUE TO TAKE INSULIN ORDERED. IV REMOVED WNL.
== END 2022-12-10 14:35 | disposition home or self-care (01) ==
LOC: ER 05:59 → MEDS 06:00 → ENPENDDIS 12-10 12:00 → MEDS 12-10 14:35
PROVIDERS: Emergency Medicine; Family Medicine; ADMIT Internal Medicine
DX: R07.89 Other chest pain (principal); R77.8 Other specified abnormalities of plasma proteins; N17.9 Acute kidney failure, unspecified; I13.0 Hypertensive heart and chronic kidney disease with heart failure and stage 1 through stage 4 chronic kidney disease, or unspecified chronic kidney disease; E11.22 Type 2 diabetes mellitus with diabetic chronic kidney disease; N18.30 Chronic kidney disease, stage 3 unspecified; I50.9 Heart failure, unspecified; I48.91 Unspecified atrial fibrillation; E80.7 Disorder of bilirubin metabolism, unspecified; I25.10 Atherosclerotic heart disease of native coronary artery without angina pectoris; I42.0 Dilated cardiomyopathy; F15.10 Other stimulant abuse, uncomplicated; I34.0 Nonrheumatic mitral (valve) insufficiency; G25.81 Restless legs syndrome; F17.200 Nicotine dependence, unspecified, uncomplicated; Z88.8 Allergy status to other drugs, medicaments and biological substances
CPT/HCPCS: 36415; 71045; 78452; 80053; 80069; 82947; 84484; 85025; 93005; 93010; 93017; 96374; 96375; 99285-25; A9270; A9500; G0378; J1815; J2405; J2785; J3010; J7120

== ENCOUNTER 2023-03-13 18:56 | Emergency (ER) | payer MEDICARE ==
[~2023-03-13] VITALS: Ht 175.3 cm; Wt 97.5 kg
[~2023-03-13 18:56] MED LIST changes: +Glucophage 500 mg PO; +INSDET100 SC; +METF500 PO; +MIRAPEX0.25 M1 PO; +XARELTO10 M1 PO
[2023-03-13 19:03] VITALS: BP 157/90
== END 2023-03-13 19:50 | disposition home or self-care (01) ==
LOC: ER 18:56
DX: M54.50 Low back pain, unspecified (principal); G89.29 Other chronic pain; Z88.8 Allergy status to other drugs, medicaments and biological substances; Z79.899 Other long term (current) drug therapy; Z79.4 Long term (current) use of insulin; Z79.84 Long term (current) use of oral hypoglycemic drugs; I11.0 Hypertensive heart disease with heart failure; E11.9 Type 2 diabetes mellitus without complications; I25.2 Old myocardial infarction; I50.9 Heart failure, unspecified; I48.91 Unspecified atrial fibrillation; I25.10 Atherosclerotic heart disease of native coronary artery without angina pectoris; F17.210 Nicotine dependence, cigarettes, uncomplicated
CPT/HCPCS: 96372; 99283-25; J1885

== ENCOUNTER 2023-04-25 20:40 | Emergency (ER) | payer MEDICARE ==
[~2023-04-25] VITALS: Ht 175.3 cm; Wt 99.8 kg
[2023-04-25 21:02] LABS: BASOPHILS ABSOLUTE AUTO 0.07 K/mm3 (0.00-0.23); BASOPHILS PERCENT AUTO 1 % (0-2); EOSINOPHILS ABSOLUTE AUTO 0.13 K/mm3 (0.00-0.68); EOSINOPHILS PERCENT AUTO 2 % (0-6); Hematocrit 43.4 % (37.0-53.0); Hemoglobin 15.5 g/dL (13.5-17.5); IMMATURE GRAN ABSOLUTE AUTO 0.03 K/mm3 (0.00-0.10); IMMATURE GRAN PERCENT AUTO 0 % (0-1); LYMPHOCYTES PERCENT AUTO 14 % (21-46); MONOCYTES ABSOLUTE AUTO 0.54 K/mm3 (0.16-1.47); MONOCYTES PERCENT AUTO 6 % (4-13); Mean Corpuscular HGB 31.3 pg (26.0-34.0); Mean Corpuscular HGB Conc 35.7 g/dL (31.5-36.5); Mean Corpuscular Volume 88 fL (80-100); Mean Platelet Volume 9.9 fL (9.1-12.4); NEUTROPHILS ABSOLUTE AUTO 6.69 K/mm3 (1.96-9.15); NEUTROPHILS PERCENT AUTO 77 % (41-73); Platelet Count 279 K/mm3 (150-400); RDW Coefficient Variation 12.9 % (11.7-14.2); RDW Standard Deviation 41.3 fL (35.1-46.3); Red Blood Cell Count 4.95 M/mm3 (4.30-5.90); White Blood Cell Count 8.66 K/mm3 (4.00-11.30)
[2023-04-25 21:22] LABS: Albumin, Blood 4.2 g/dL (3.4-5.0); Albumin/Globulin Ratio 1.1 (0.8-1.8); Bilirubin, Total 1.6 mg/dL (0.1-1.0); Bun/Creatinine Ratio 26.2 (12.0-20.0); Calcium, Blood 9.6 mg/dL (8.5-10.1); Creatinine, Blood 1.22 mg/dL (0.60-1.20); Globulin, Blood 3.9 g/dL (2.2-4.0); Potassium, Blood 3.8 mmol/L (3.5-5.5); Total Protein, Blood 8.1 g/dL (6.4-8.2)
[2023-04-25 21:35] LABS: Magnesium, Blood 1.7 mg/dL (1.6-2.4)
[2023-04-25 22:41] VITALS: BP 138/85
[2023-04-25 22:54] LABS: Influenza A, PCR NEGATIVE (NEGATIVE); Influenza B, PCR NEGATIVE (NEGATIVE); Resp Syncytial Virus, PCR NEGATIVE (NEGATIVE); SARS-Cov-2 (COVID-19) PCR, MMC NEGATIVE (NEGATIVE)
== END 2023-04-25 23:22 | disposition home or self-care (01) ==
LOC: ER 20:40
PROVIDERS: Physician Assistant; Student in an Organized Health Care Education/Training Program
DX: R06.02 Shortness of breath (principal); R53.83 Other fatigue; I11.0 Hypertensive heart disease with heart failure; I50.9 Heart failure, unspecified; I25.2 Old myocardial infarction; I25.10 Atherosclerotic heart disease of native coronary artery without angina pectoris; I48.91 Unspecified atrial fibrillation; E11.9 Type 2 diabetes mellitus without complications; F17.210 Nicotine dependence, cigarettes, uncomplicated; Z20.822 Contact with and (suspected) exposure to COVID-19; Z88.8 Allergy status to other drugs, medicaments and biological substances; Z79.899 Other long term (current) drug therapy; Z79.4 Long term (current) use of insulin; Z79.01 Long term (current) use of anticoagulants; Z79.84 Long term (current) use of oral hypoglycemic drugs
CPT/HCPCS: 0241U; 71046; 80053; 83735; 83880; 84484; 85025; 93005; 93010; 99284-25

== ENCOUNTER → 2023-07-07 | Outpatient (CLI) | payer OTHER | END | disposition home or self-care (01) | LOC: LAB 14:45 → LAB SHORT 14:45 | DX: E11.9 Type 2 diabetes mellitus without complications (principal) | CPT/HCPCS: 82043 ==

== ENCOUNTER → 2024-02-09 | Outpatient (CLI) | payer OTHER ==
[~2024-02-09] MED LIST changes: +BASAGLAR K100 UNIT/1 SC; +ISOSORBIDE MONO30 MG PO; +JARDIANCE10 MG PO; +LEVEMIR100 UNIT/1 PO; +NITR.4SL SL; +SILDENAFIL CITR50 MG PO
== END ==
LOC: LAB 11:08 → LAB SHORT 11:08
DX: L02.91 Cutaneous abscess, unspecified (principal)
CPT/HCPCS: 87070; 87077; 87147; 87186; 87205

== ENCOUNTER 2024-02-29 18:24 | Inpatient (IN) | payer OTHER ==
[~2024-02-29] VITALS: Ht 175.3 cm; Wt 96.5 kg
[~2024-02-29 18:24] MED LIST changes: +Lactated Ringer's 1,000 ML IV SCH; -XARELTO10 M1 PO
[2024-02-29 19:29] LABS: BASOPHILS ABSOLUTE AUTO 0.05 K/mm3 (0.00-0.23); BASOPHILS PERCENT AUTO 1 % (0-2); EOSINOPHILS ABSOLUTE AUTO 0.08 K/mm3 (0.00-0.68); EOSINOPHILS PERCENT AUTO 1 % (0-6); Hematocrit 44.8 % (37.0-53.0); Hemoglobin 15.5 g/dL (13.5-17.5); IMMATURE GRAN ABSOLUTE AUTO 0.02 K/mm3 (0.00-0.10); IMMATURE GRAN PERCENT AUTO 0 % (0-1); LYMPHOCYTES PERCENT AUTO 14 % (21-46); MONOCYTES ABSOLUTE AUTO 0.56 K/mm3 (0.16-1.47); MONOCYTES PERCENT AUTO 8 % (4-13); Mean Corpuscular HGB 30.8 pg (26.0-34.0); Mean Corpuscular HGB Conc 34.6 g/dL (31.5-36.5); Mean Corpuscular Volume 89 fL (80-100); Mean Platelet Volume 9.7 fL (9.1-12.4); NEUTROPHILS PERCENT AUTO 76 % (41-73); Platelet Count 291 K/mm3 (150-400); RDW Coefficient Variation 13.2 % (11.7-14.2); RDW Standard Deviation 43.1 fL (35.1-46.3); Red Blood Cell Count 5.03 M/mm3 (4.30-5.90); White Blood Cell Count 7.11 K/mm3 (4.00-11.30)
[2024-02-29 19:52] LABS: Albumin, Blood 3.8 g/dL (3.4-5.0); Albumin/Globulin Ratio 1.1 (0.8-1.8); Bilirubin, Total 2.1 mg/dL (0.1-1.0); Bun/Creatinine Ratio 14.7 (12.0-20.0); Calcium, Blood 9.3 mg/dL (8.5-10.1); Creatinine, Blood 2.86 mg/dL (0.60-1.20); Globulin, Blood 3.5 g/dL (2.2-4.0); Potassium, Blood 3.4 mmol/L (3.5-5.5); Total Protein, Blood 7.3 g/dL (6.4-8.2)
[2024-02-29] MEDS ORDERED: Lactated Ringer's 1,000 ML IV ONE (20:35)
[2024-02-29 20:58] LABS: Magnesium, Blood 1.7 mg/dL (1.6-2.4)
[2024-02-29] MEDS ORDERED: Acetaminophen 325 MG TABLET PO ONE (21:35)
[2024-02-29 22:23] LABS: Influenza A, PCR NEGATIVE (NEGATIVE); Influenza B, PCR NEGATIVE (NEGATIVE); Resp Syncytial Virus, PCR NEGATIVE (NEGATIVE); SARS-Cov-2 (COVID-19) PCR, MMC NEGATIVE (NEGATIVE)
[2024-02-29] MEDS ORDERED: Acetaminophen 325 MG TABLET PO PRN (23:05)
[2024-02-29] MEDS ORDERED: Ondansetron HCl 2 MG / ML 2ML Vial IV PRN (23:05)
[2024-02-29] MEDS ORDERED: FLU VACC TS2024-25(6MOS UP)/PF 45 MCG/0.5 ML SYRINGE IM SCH (23:10)
[2024-03-01 01:34] VITALS: BP 118/70
[2024-03-01] MEDS ORDERED: Pramipexole DI-HCL 0.25 MG Tab PO SCH (02:25)
[2024-03-01 03:37] VITALS: BP 115/76
[2024-03-01] MEDS ORDERED: Nitroglycerin 0.4 MG SUBL SL PRN (05:15)
[2024-03-01 05:40] LABS: BASOPHILS ABSOLUTE AUTO 0.05 K/mm3 (0.00-0.23); BASOPHILS PERCENT AUTO 1 % (0-2); EOSINOPHILS ABSOLUTE AUTO 0.14 K/mm3 (0.00-0.68); EOSINOPHILS PERCENT AUTO 2 % (0-6); Hematocrit 42.3 % (37.0-53.0); Hemoglobin 14.7 g/dL (13.5-17.5); IMMATURE GRAN ABSOLUTE AUTO 0.02 K/mm3 (0.00-0.10); IMMATURE GRAN PERCENT AUTO 0 % (0-1); LYMPHOCYTES ABSOLUTE AUTO 1.93 K/mm3 (0.84-5.20); LYMPHOCYTES PERCENT AUTO 23 % (21-46); MONOCYTES ABSOLUTE AUTO 0.67 K/mm3 (0.16-1.47); MONOCYTES PERCENT AUTO 8 % (4-13); Mean Corpuscular HGB 30.9 pg (26.0-34.0); Mean Corpuscular HGB Conc 34.8 g/dL (31.5-36.5); Mean Corpuscular Volume 89 fL (80-100); Mean Platelet Volume 9.8 fL (9.1-12.4); NEUTROPHILS ABSOLUTE AUTO 5.56 K/mm3 (1.96-9.15); NEUTROPHILS PERCENT AUTO 66 % (41-73); Platelet Count 247 K/mm3 (150-400); RDW Coefficient Variation 13.2 % (11.7-14.2); RDW Standard Deviation 43.6 fL (35.1-46.3); Red Blood Cell Count 4.75 M/mm3 (4.30-5.90); White Blood Cell Count 8.37 K/mm3 (4.00-11.30)
--- NOTE | 2024-03-01 06:07 | NUR ---
SHIFT SUMMARY PT ARRIVES TO ROOM 305 FROM ER AROUND 0130 VIA WHEELCHAIR. PT TRNASFER SELF TO HOSPITAL BED. PT ORIENTED TO ROOM AND CALL LIGHT SYSTEM. VSS ON RA. PER TELEMETRY PT IS SR @ 60 BPM. WHEN PT UP AMBULATING IN HALLS, HR IS IN THE 90'S. DENIES PAIN. DOES HAVE MILD CHEST PRESSURE, BUT NO CHANGES SINCE ARRIVAL TO HOSPITAL. TOLERATING A CONS CARB DIET. UP AD MARICRUZ IN ROOM/BR INDEPENDENTLY. SMOKING CESSATION DISCUSSED WITH PT, AND ASKED IF HE WANTED TO HAVE A NICOTINE PATCH, HE DENIED THE NEED FOR ONE. BED IN LOWEST POSITION, CALL LIGHT WITHIN REACH.
[2024-03-01 06:11] LABS: Albumin, Blood 3.4 g/dL (3.4-5.0); Albumin/Globulin Ratio 1.1 (0.8-1.8); Bilirubin, Total 1.5 mg/dL (0.1-1.0); Bun/Creatinine Ratio 16.7 (12.0-20.0); Calcium, Blood 8.8 mg/dL (8.5-10.1); Creatinine, Blood 2.4 mg/dL (0.60-1.20); Globulin, Blood 3.1 g/dL (2.2-4.0); Magnesium, Blood 1.6 mg/dL (1.6-2.4); Phosphorus, Blood 4.3 mg/dL (2.5-4.9); Potassium, Blood 3.2 mmol/L (3.5-5.5); Total Protein, Blood 6.5 g/dL (6.4-8.2)
[2024-03-01] MEDS ORDERED: Insulin Human Lispro 100 Units/ML 3ML Syringe SC SCH (07:30)
[2024-03-01 07:56] VITALS: BP 130/86
[2024-03-01] MEDS ORDERED: Potassium Chloride 20 MEQ TabCR PO ONE (08:00)
[2024-03-01] MEDS ORDERED: Amiodarone HCl 200 MG Tab PO SCH (09:00)
[2024-03-01] MEDS ORDERED: Clopidogrel Bisulfate 75 MG Tab PO SCH (09:00)
[2024-03-01] MEDS ORDERED: Metoprolol Succinate 50 MG TABCR PO SCH (09:00)
[2024-03-01] MEDS ORDERED: Rivaroxaban 10 MG Tab PO SCH (09:00)
[2024-03-01] MEDS ORDERED: Insulin Glargine-Yfgn 100 Unit/mL 3 ML SYR SC SCH (09:00)
[2024-03-01] MEDS ORDERED: Isosorbide Mononitrate 60 MG TABCR PO SCH (09:00)
[2024-03-01] MEDS ORDERED: Lactated Ringer's 500 ML IV ONE (14:00)
[2024-03-01 15:29] VITALS: BP 110/66
--- NOTE | 2024-03-01 18:05 | NUR ---
SHIFT SUMMARY PT A&OX4, VSS, AMB IND, TOLERATING PO, VOIDING, AND DENIED PAIN. NO TELE EVENTS AND NO C/O CHEST PAIN AND OR PRESSURE. LR INFUSED PER EMAR. CALL LIGHT WITHIN REACH AND PT ABLE TO MAKE NEEDS KNOWN.
[2024-03-01 19:29] VITALS: BP 111/73
[2024-03-01] MEDS ORDERED: Atorvastatin 40 MG Tab PO SCH (21:00)
[2024-03-02] MEDS ORDERED: ALBU90OI INH (00:33)
[2024-03-02] MEDS ORDERED: PRAMIPEXOLE DI0.5 M1 PO (00:47)
[2024-03-02] MEDS ORDERED: JARDIANCE25 MG PO (00:49)
[2024-03-02] MEDS ORDERED: GLUCOSE4 GM PO (00:49)
--- NOTE | 2024-03-02 04:03 | NUR ---
SHIFT SUMMARY 64 YR M ADMITTED ON 02/29/24. FULL CODE. NO ACUTE CHANGES THIS SHIFT. PT C/O BACK PAIN AND STATES THAT WALKING HELPS WITH THE PAIN. HE IS PLEASANT AND COOPERATIVE WITH CARE. NO ADVERSE EVENTS REPORTED FROM [employer].
[2024-03-02 04:37] VITALS: BP 111/61
[2024-03-02 05:57] LABS: BASOPHILS ABSOLUTE AUTO 0.06 K/mm3 (0.00-0.23); BASOPHILS PERCENT AUTO 1 % (0-2); EOSINOPHILS ABSOLUTE AUTO 0.14 K/mm3 (0.00-0.68); EOSINOPHILS PERCENT AUTO 2 % (0-6); Hematocrit 43.5 % (37.0-53.0); Hemoglobin 15.1 g/dL (13.5-17.5); IMMATURE GRAN ABSOLUTE AUTO 0.02 K/mm3 (0.00-0.10); IMMATURE GRAN PERCENT AUTO 0 % (0-1); LYMPHOCYTES ABSOLUTE AUTO 1.62 K/mm3 (0.84-5.20); LYMPHOCYTES PERCENT AUTO 18 % (21-46); MONOCYTES ABSOLUTE AUTO 0.62 K/mm3 (0.16-1.47); MONOCYTES PERCENT AUTO 7 % (4-13); Mean Corpuscular HGB 31.1 pg (26.0-34.0); Mean Corpuscular HGB Conc 34.7 g/dL (31.5-36.5); Mean Corpuscular Volume 90 fL (80-100); Mean Platelet Volume 9.7 fL (9.1-12.4); NEUTROPHILS ABSOLUTE AUTO 6.46 K/mm3 (1.96-9.15); NEUTROPHILS PERCENT AUTO 72 % (41-73); Platelet Count 221 K/mm3 (150-400); RDW Coefficient Variation 13.3 % (11.7-14.2); RDW Standard Deviation 43.8 fL (35.1-46.3); Red Blood Cell Count 4.85 M/mm3 (4.30-5.90); White Blood Cell Count 8.92 K/mm3 (4.00-11.30)
[2024-03-02 06:36] LABS: Albumin, Blood 3.6 g/dL (3.4-5.0); Albumin/Globulin Ratio 1.1 (0.8-1.8); Bilirubin, Total 1.8 mg/dL (0.1-1.0); Bun/Creatinine Ratio 18.5 (12.0-20.0); Calcium, Blood 9.4 mg/dL (8.5-10.1); Creatinine, Blood 1.57 mg/dL (0.60-1.20); Globulin, Blood 3.4 g/dL (2.2-4.0); Potassium, Blood 3.2 mmol/L (3.5-5.5)
[2024-03-02 07:18] VITALS: BP 118/70
[2024-03-02] MEDS ORDERED: Potassium Chloride 20 MEQ TabCR PO ONE (07:20)
[2024-03-02] MEDS ORDERED: Rivaroxaban 10 MG Tab PO SCH (09:00)
[2024-03-02 11:59] VITALS: BP 131/75
--- NOTE | 2024-03-02 12:38 | NUR ---
PATIENT COMPLAINING OF CHEST PAIN 08/14, NITRO ADINISTERED. BP OBTAINED SBP 130s. DISCHARGE ORDER IN PLACE, MD NOTIFIED OF CHEST PAIN. NITRO NOT EFFECTIVE IN MANAGING PAIN, HOWEVER PATIENT STATES THIS IS A CHRONIC ISSUE HE DEALS WITH AT HOME INTERMITTENTLY AND "NOTHING IS EFFECTIVE" PER PATIENT. MD STATED WILL ORDER TRIPONIN LAB DRAW AND IF WNL WILL CONTINUE WITH DISCHARGE.
--- NOTE | 2024-03-02 14:27 | NUR ---
DISCHARGE NOTE PATIENT A/OX4, ABLE TO MAKE NEEDS KNOWN. INDEPENDENT IN ROOM. COMPLAINING OF BACK PAIN, TYLENOL ADMINISTERED PER MAR AND HEAT PACK AND CUSHION PROVIDED FOR COMFORT. PATIENT ALSO COMPLAINED OF CHEST PAIN 3/10 AFTER DISCHARGE ORDER RECIEVED. MD INFORMED AND TRIPONIN PÉREZ MOON AND STATED TO CONTINUE WITH DISCHARGE. NITRO WAS ADMINISTERED, BUT NOT EFFECTIVE. PER PATIENT STATES ONGOING PROBLEM AT HOME WITH INTERMITTENT LOW GRADE CHEST DISCOMFORT. DISCHARGE INSTRUCTIONS PROVIDED TO PATIENT, DISCUSSED MEDICATIONS AND FOLLOW UP APPOINTMENTS. PATIENT WITH NO QUESTIONS AT TIME OF DISCHARGE. PIV AND TELEMTRY REMOVED, AND PATIENT ASSISTED TO VEHICLE BY [facility] STAFF. NO OTHER CONCERNS.
== END 2024-03-02 14:11 | disposition home or self-care (01) | DRG 683 ==
LOC: ER 18:24 → ERHOLD 23:01 → MEDS 03-01 01:26 → ENPENDDIS 03-02 13:01 → MEDS 03-02 14:11
PROVIDERS: Emergency Medicine; Registered Nurse; Student in an Organized Health Care Education/Training Program; ADMIT Student in an Organized Health Care Education/Training Program
DX: N17.9 Acute kidney failure, unspecified (principal); I13.0 Hypertensive heart and chronic kidney disease with heart failure and stage 1 through stage 4 chronic kidney disease, or unspecified chronic kidney disease; I50.22 Chronic systolic (congestive) heart failure; E11.22 Type 2 diabetes mellitus with diabetic chronic kidney disease; F41.9 Anxiety disorder, unspecified; I25.10 Atherosclerotic heart disease of native coronary artery without angina pectoris; F17.210 Nicotine dependence, cigarettes, uncomplicated; E86.0 Dehydration; E11.65 Type 2 diabetes mellitus with hyperglycemia; F15.90 Other stimulant use, unspecified, uncomplicated; I48.0 Paroxysmal atrial fibrillation; E87.6 Hypokalemia; N18.32 Chronic kidney disease, stage 3b; E78.5 Hyperlipidemia, unspecified; Z98.890 Other specified postprocedural states; Z95.5 Presence of coronary angioplasty implant and graft; I25.2 Old myocardial infarction; Z88.8 Allergy status to other drugs, medicaments and biological substances; Z79.01 Long term (current) use of anticoagulants; Z79.02 Long term (current) use of antithrombotics/antiplatelets; Z79.4 Long term (current) use of insulin; Z79.899 Other long term (current) drug therapy
CPT/HCPCS: 0241U; 36415; 71046; 76770; 80053; 82947; 83735; 84100; 84484; 85025; 93005; 93010; 96360; 99285-25; A9270; J1815; J7120

== ENCOUNTER 2024-06-18 20:43 | Emergency (ER) | payer OTHER ==
[~2024-06-18] VITALS: Ht 175.3 cm; Wt 90.7 kg
[~2024-06-18 20:43] MED LIST changes: +ALBU90OI INH; +GLUCOSE4 GM PO; +JARDIANCE25 MG PO; -Lactated Ringer's 1,000 ML IV SCH; +PRAMIPEXOLE DI0.5 M1 PO
[2024-06-18 21:00] LABS: BASOPHILS ABSOLUTE AUTO 0.04 K/mm3 (0.00-0.23); BASOPHILS PERCENT AUTO 0 % (0-2); EOSINOPHILS ABSOLUTE AUTO 0.07 K/mm3 (0.00-0.68); EOSINOPHILS PERCENT AUTO 1 % (0-6); Hematocrit 43.2 % (37.0-53.0); Hemoglobin 15.6 g/dL (13.5-17.5); IMMATURE GRAN ABSOLUTE AUTO 0.03 K/mm3 (0.00-0.10); IMMATURE GRAN PERCENT AUTO 0 % (0-1); LYMPHOCYTES ABSOLUTE AUTO 0.77 K/mm3 (0.84-5.20); LYMPHOCYTES PERCENT AUTO 8 % (21-46); MONOCYTES ABSOLUTE AUTO 0.42 K/mm3 (0.16-1.47); MONOCYTES PERCENT AUTO 4 % (4-13); Mean Corpuscular HGB 31.3 pg (26.0-34.0); Mean Corpuscular HGB Conc 36.1 g/dL (31.5-36.5); Mean Corpuscular Volume 87 fL (80-100); Mean Platelet Volume 9.8 fL (9.1-12.4); NEUTROPHILS ABSOLUTE AUTO 8.74 K/mm3 (1.96-9.15); NEUTROPHILS PERCENT AUTO 87 % (41-73); Platelet Count 305 K/mm3 (150-400); RDW Coefficient Variation 13.2 % (11.7-14.2); RDW Standard Deviation 42.3 fL (35.1-46.3); Red Blood Cell Count 4.98 M/mm3 (4.30-5.90); White Blood Cell Count 10.07 K/mm3 (4.00-11.30)
[2024-06-18 21:24] LABS: Albumin, Blood 3.9 g/dL (3.4-5.0); Albumin/Globulin Ratio 0.9 (0.8-1.8); Bilirubin, Total 1.7 mg/dL (0.1-1.0); Calcium, Blood 10.4 mg/dL (8.5-10.1); Creatinine, Blood 1.74 mg/dL (0.60-1.20); Globulin, Blood 4.3 g/dL (2.2-4.0); Potassium, Blood 4.9 mmol/L (3.5-5.5); Total Protein, Blood 8.2 g/dL (6.4-8.2)
[2024-06-18] MEDS ORDERED: Morphine Sulfate 4 MG/1 ML Injection IV ONE (23:25)
[2024-06-18] MEDS ORDERED: Ondansetron HCl 2 MG / ML 2ML Vial IV ONE (23:25)
[2024-06-19] MEDS ORDERED: MIRALAX17 GM PO (01:01)
[2024-06-19] MEDS ORDERED: SENNA LAXATIVE8.6 MG PO (01:01)
[2024-06-19 01:02] VITALS: BP 104/73
== END 2024-06-19 01:12 | disposition home or self-care (01) ==
LOC: ER 20:43
PROVIDERS: Physician Assistant
DX: K59.00 Constipation, unspecified (principal); E11.65 Type 2 diabetes mellitus with hyperglycemia; I25.10 Atherosclerotic heart disease of native coronary artery without angina pectoris; I11.0 Hypertensive heart disease with heart failure; I50.20 Unspecified systolic (congestive) heart failure; I48.91 Unspecified atrial fibrillation; I25.2 Old myocardial infarction; F17.210 Nicotine dependence, cigarettes, uncomplicated; Z88.8 Allergy status to other drugs, medicaments and biological substances; Z79.01 Long term (current) use of anticoagulants; Z79.84 Long term (current) use of oral hypoglycemic drugs; Z79.4 Long term (current) use of insulin; Z79.899 Other long term (current) drug therapy
CPT/HCPCS: 74177; 80053; 83690; 85025; 96374-59; 96375; 99284-25; J2270; J2405; Q9967

== ENCOUNTER 2024-06-21 17:00 | Emergency (ER) | payer OTHER ==
[~2024-06-21] VITALS: Ht 180.3 cm; Wt 86.2 kg
[~2024-06-21 17:00] MED LIST changes: +MIRALAX17 GM PO; +SENNA LAXATIVE8.6 MG PO
[2024-06-21 17:21] VITALS: BP 112/78
[2024-06-21] MEDS ORDERED: NS 1,000 ML IV SCH ×2 (17:40→17:50)
[2024-06-21 18:07] LABS: BASOPHILS ABSOLUTE AUTO 0.06 K/mm3 (0.00-0.23); BASOPHILS PERCENT AUTO 1 % (0-2); EOSINOPHILS ABSOLUTE AUTO 0.12 K/mm3 (0.00-0.68); EOSINOPHILS PERCENT AUTO 2 % (0-6); Hematocrit 40.4 % (37.0-53.0); Hemoglobin 14.3 g/dL (13.5-17.5); IMMATURE GRAN ABSOLUTE AUTO 0.02 K/mm3 (0.00-0.10); IMMATURE GRAN PERCENT AUTO 0 % (0-1); LYMPHOCYTES ABSOLUTE AUTO 1.28 K/mm3 (0.84-5.20); LYMPHOCYTES PERCENT AUTO 19 % (21-46); MONOCYTES ABSOLUTE AUTO 0.55 K/mm3 (0.16-1.47); MONOCYTES PERCENT AUTO 8 % (4-13); Mean Corpuscular HGB Conc 35.4 g/dL (31.5-36.5); Mean Corpuscular Volume 87 fL (80-100); NEUTROPHILS ABSOLUTE AUTO 4.79 K/mm3 (1.96-9.15); NEUTROPHILS PERCENT AUTO 70 % (41-73); Platelet Count 261 K/mm3 (150-400); RDW Standard Deviation 41.5 fL (35.1-46.3); Red Blood Cell Count 4.62 M/mm3 (4.30-5.90); White Blood Cell Count 6.82 K/mm3 (4.00-11.30)
[2024-06-21 18:31] LABS: Albumin, Blood 3.5 g/dL (3.4-5.0); Albumin/Globulin Ratio 0.9 (0.8-1.8); Bilirubin, Total 2.5 mg/dL (0.1-1.0); Bun/Creatinine Ratio 25.9 (12.0-20.0); Calcium, Blood 9.7 mg/dL (8.5-10.1); Creatinine, Blood 1.62 mg/dL (0.60-1.20); Globulin, Blood 4.1 g/dL (2.2-4.0); Potassium, Blood 4.7 mmol/L (3.5-5.5); Total Protein, Blood 7.6 g/dL (6.4-8.2)
== END 2024-06-21 20:13 | disposition home or self-care (01) ==
LOC: ER 17:00
PROVIDERS: Student in an Organized Health Care Education/Training Program
DX: R55 Syncope and collapse (principal); E87.1 Hypo-osmolality and hyponatremia; E11.65 Type 2 diabetes mellitus with hyperglycemia; I11.0 Hypertensive heart disease with heart failure; I50.20 Unspecified systolic (congestive) heart failure; I25.10 Atherosclerotic heart disease of native coronary artery without angina pectoris; I48.91 Unspecified atrial fibrillation; Z88.8 Allergy status to other drugs, medicaments and biological substances; Z79.01 Long term (current) use of anticoagulants; Z79.84 Long term (current) use of oral hypoglycemic drugs; Z79.4 Long term (current) use of insulin; Z79.899 Other long term (current) drug therapy
CPT/HCPCS: 80053; 83880; 84484; 85025; 93005; 93010; 96360; 96361; 99284-25; J7030

== ENCOUNTER 2024-11-05 16:50 | Emergency (ER) | payer OTHER ==
[~2024-11-05] VITALS: Ht 175.3 cm; Wt 87.5 kg
[2024-11-05 18:59] LABS: BASOPHILS ABSOLUTE AUTO 0.04 K/mm3 (0.00-0.23); BASOPHILS PERCENT AUTO 1 % (0-2); EOSINOPHILS PERCENT AUTO 1 % (0-6); Hematocrit 45.8 % (37.0-53.0); Hemoglobin 16.1 g/dL (13.5-17.5); IMMATURE GRAN ABSOLUTE AUTO 0.01 K/mm3 (0.00-0.10); IMMATURE GRAN PERCENT AUTO 0 % (0-1); LYMPHOCYTES ABSOLUTE AUTO 1.08 K/mm3 (0.84-5.20); LYMPHOCYTES PERCENT AUTO 15 % (21-46); MONOCYTES ABSOLUTE AUTO 0.55 K/mm3 (0.16-1.47); MONOCYTES PERCENT AUTO 8 % (4-13); Mean Corpuscular HGB 30.6 pg (26.0-34.0); Mean Corpuscular HGB Conc 35.2 g/dL (31.5-36.5); Mean Corpuscular Volume 87 fL (80-100); Mean Platelet Volume 9.6 fL (9.1-12.4); NEUTROPHILS ABSOLUTE AUTO 5.35 K/mm3 (1.96-9.15); NEUTROPHILS PERCENT AUTO 75 % (41-73); Platelet Count 276 K/mm3 (150-400); RDW Coefficient Variation 13.2 % (11.7-14.2); RDW Standard Deviation 41.7 fL (35.1-46.3); Red Blood Cell Count 5.27 M/mm3 (4.30-5.90); White Blood Cell Count 7.13 K/mm3 (4.00-11.30)
[2024-11-05 19:11] LABS: Albumin, Blood 3.9 g/dL (3.4-5.0); Bilirubin, Total 1.3 mg/dL (0.1-1.0); Bun/Creatinine Ratio 30.6 (12.0-20.0); Calcium, Blood 9.7 mg/dL (8.5-10.1); Creatinine, Blood 1.08 mg/dL (0.60-1.20); Globulin, Blood 3.8 g/dL (2.2-4.0); Potassium, Blood 4.5 mmol/L (3.5-5.5); Total Protein, Blood 7.7 g/dL (6.4-8.2)
[2024-11-05] MEDS ORDERED: Lidocaine 4% 1 Patch TOP ONE (20:10)
[2024-11-05] MEDS ORDERED: Ketorolac Tromethamine 15mg Vial IV ONE (20:10)
[2024-11-05] MEDS ORDERED: RX Prepack 6 Tabs Oxycodone 5mg UD ONE (20:10)
[2024-11-05] MEDS ORDERED: ASPERFLEX1 EACH TOP (20:11)
[2024-11-05 20:45] VITALS: BP 116/82
== END 2024-11-05 18:20 | disposition home or self-care (01) ==
LOC: ER 16:50
PROVIDERS: Student in an Organized Health Care Education/Training Program
DX: M25.552 Pain in left hip (principal); Z88.8 Allergy status to other drugs, medicaments and biological substances; Z79.899 Other long term (current) drug therapy; Z79.4 Long term (current) use of insulin; Z79.01 Long term (current) use of anticoagulants; I10 Essential (primary) hypertension; I48.91 Unspecified atrial fibrillation; I25.2 Old myocardial infarction; E11.9 Type 2 diabetes mellitus without complications; F17.210 Nicotine dependence, cigarettes, uncomplicated
CPT/HCPCS: 70450; 73502; 80053; 85025; 96374; 99284-25; A9270; J1885

== ENCOUNTER 2024-11-18 21:47 | Emergency (ER) | payer OTHER ==
[~2024-11-18] VITALS: Ht 175.3 cm; Wt 86.2 kg
[~2024-11-18 21:47] MED LIST changes: +ASPERFLEX1 EACH TOP
[2024-11-18 22:27] LABS: BASOPHILS ABSOLUTE AUTO 0.03 K/mm3 (0.00-0.23); BASOPHILS PERCENT AUTO 1 % (0-2); EOSINOPHILS ABSOLUTE AUTO 0.13 K/mm3 (0.00-0.68); EOSINOPHILS PERCENT AUTO 2 % (0-6); Hematocrit 48.8 % (37.0-53.0); Hemoglobin 16.8 g/dL (13.5-17.5); IMMATURE GRAN ABSOLUTE AUTO 0.01 K/mm3 (0.00-0.10); IMMATURE GRAN PERCENT AUTO 0 % (0-1); LYMPHOCYTES ABSOLUTE AUTO 1.56 K/mm3 (0.84-5.20); LYMPHOCYTES PERCENT AUTO 24 % (21-46); MONOCYTES ABSOLUTE AUTO 0.32 K/mm3 (0.16-1.47); MONOCYTES PERCENT AUTO 5 % (4-13); Mean Corpuscular HGB 29.9 pg (26.0-34.0); Mean Corpuscular HGB Conc 34.4 g/dL (31.5-36.5); Mean Corpuscular Volume 87 fL (80-100); Mean Platelet Volume 9.1 fL (9.1-12.4); NEUTROPHILS ABSOLUTE AUTO 4.58 K/mm3 (1.96-9.15); NEUTROPHILS PERCENT AUTO 69 % (41-73); Platelet Count 289 K/mm3 (150-400); RDW Coefficient Variation 13.2 % (11.7-14.2); RDW Standard Deviation 41.5 fL (35.1-46.3); Red Blood Cell Count 5.61 M/mm3 (4.30-5.90); White Blood Cell Count 6.63 K/mm3 (4.00-11.30)
[2024-11-18 22:51] LABS: Albumin, Blood 4.4 g/dL (3.4-5.0); Bilirubin, Total 1.5 mg/dL (0.1-1.0); Bun/Creatinine Ratio 18.1 (12.0-20.0); Calcium, Blood 9.3 mg/dL (8.5-10.1); Creatinine, Blood 1.16 mg/dL (0.60-1.20); Globulin, Blood 4.6 g/dL (2.2-4.0); Potassium, Blood 3.5 mmol/L (3.5-5.5)
[2024-11-18 23:38] LABS: Source, Urine Clean Catch
[2024-11-18 23:57] LABS: Bilirubin, Urine Neg (Neg); Blood, Urine Neg (Neg); Glucose Qualitative, Urine 4+ (Neg); Ketones, Urine Neg (Neg); Leukocyte Esterase, Urine Neg (Neg); Nitrite, Urine Neg (Neg); Protein, Urine Neg (Neg); Specific Gravity, Urine 1.015 (1.003-1.022); Urobilinogen, Urine NORM (Normal)
[2024-11-19 00:06] LABS: Appearance, Urine Clear (Clear); Color, Urine Pale Yellow (P-Yellow)
[2024-11-19 00:30] VITALS: BP 139/121
[2024-11-19] MEDS ORDERED: PredniSONE 20 MG Tab PO ONE (00:40)
[2024-11-19] MEDS ORDERED: OxyCODONE 5 mg/Acetamin 325 mg TABLET PO ONE (00:40)
[2024-11-19] MEDS ORDERED: OXYC5 PO (00:43)
[2024-11-19] MEDS ORDERED: METPRE4DP PO (00:43)
[2024-11-19] MEDS ORDERED: RX Prepack 6 Tabs Oxycodone 5mg UD ONE (00:45)
== END 2024-11-19 01:10 | disposition home or self-care (01) ==
LOC: ER 21:47
PROVIDERS: Physician Assistant
DX: M54.32 Sciatica, left side (principal); E11.9 Type 2 diabetes mellitus without complications; I25.2 Old myocardial infarction; I11.0 Hypertensive heart disease with heart failure; I50.9 Heart failure, unspecified; F17.200 Nicotine dependence, unspecified, uncomplicated; Z88.8 Allergy status to other drugs, medicaments and biological substances; Z79.02 Long term (current) use of antithrombotics/antiplatelets; Z79.4 Long term (current) use of insulin; Z79.899 Other long term (current) drug therapy
CPT/HCPCS: 76870; 80053; 81003; 85025; A9270; J7512

== ENCOUNTER → 2024-12-07 | Outpatient (CLI) | payer OTHER ==
[~2024-12-07] MED LIST changes: +CYCL10 PO; +LIDO700A20 TOP; +METPRE4DP PO; +OXAYDO5 M1 PO; +OXYC5 PO
[2024-12-07 17:49] LABS: Creatinine, Urine Random 76.50 mg/dL (27.00-270.00); Microalb/Creat Ratio UR, Rand Unable to Calculate mg/g (0.000-30.000); Microalbumin, Random Urine <5.000 mg/L (0.000-20.000)
== END | disposition home or self-care (01) ==
LOC: LAB SHORT 12:46 → LAB 12:46
DX: E11.65 Type 2 diabetes mellitus with hyperglycemia (principal)
CPT/HCPCS: 82043; 82570

== ENCOUNTER 2024-12-18 14:51 | Emergency (ER) | payer OTHER ==
[~2024-12-18] VITALS: Ht 175.3 cm; Wt 83.0 kg
[2024-12-18 15:48] LABS: BASOPHILS ABSOLUTE AUTO 0.06 K/mm3 (0.00-0.23); BASOPHILS PERCENT AUTO 1 % (0-2); EOSINOPHILS ABSOLUTE AUTO 0.09 K/mm3 (0.00-0.68); EOSINOPHILS PERCENT AUTO 1 % (0-6); Hematocrit 44.6 % (37.0-53.0); Hemoglobin 15.2 g/dL (13.5-17.5); IMMATURE GRAN ABSOLUTE AUTO 0.03 K/mm3 (0.00-0.10); IMMATURE GRAN PERCENT AUTO 0 % (0-1); LYMPHOCYTES ABSOLUTE AUTO 1.33 K/mm3 (0.84-5.20); LYMPHOCYTES PERCENT AUTO 11 % (21-46); MONOCYTES ABSOLUTE AUTO 0.94 K/mm3 (0.16-1.47); MONOCYTES PERCENT AUTO 8 % (4-13); Mean Corpuscular HGB Conc 34.1 g/dL (31.5-36.5); Mean Corpuscular Volume 90 fL (80-100); NEUTROPHILS ABSOLUTE AUTO 9.89 K/mm3 (1.96-9.15); NEUTROPHILS PERCENT AUTO 80 % (41-73); NRBC ABSOLUTE 0.00 K/mm3 (0.00-0.02); NRBC Auto 0.0 /100 WBC (0.0-0.2); Platelet Count 340 K/mm3 (150-400); RDW Coefficient Variation 13.8 % (11.7-14.2); RDW Standard Deviation 45.0 fL (35.1-46.3)
[2024-12-18] MEDS ORDERED: HYDROcodone 5-APAP 325 TAB PO ONE (17:00)
[2024-12-18 17:12] LABS: Alanine Aminotransfer (ALT/SGP 25.0 U/L (12-78); Albumin, Blood 3.4 g/dL (3.4-5.0); Albumin/Globulin Ratio 0.8 (0.8-1.8); Anion Gap 10.0 mmol/L (3-11); Aspartate Aminotrans (AST/SGOT 9.0 U/L (12-37); Bilirubin, Total 2.0 mg/dL (0.1-1.0); Blood Urea Nitrogen 35.0 mg/dL (8-24); CO2, Blood 28.0 mmol/L (21-32); Calcium, Blood 9.2 mg/dL (8.5-10.1); Chloride, Blood 100.0 mmol/L (98-108); Creatinine, Blood 1.21 mg/dL (0.60-1.20); Globulin, Blood 4.5 g/dL (2.2-4.0); Glucose, Blood 342.0 mg/dL (70-99); Potassium, Blood 4.1 mmol/L (3.5-5.5); Sodium, Blood 134.0 mmol/L (136-145); Total Protein, Blood 7.9 g/dL (6.4-8.2)
[2024-12-18 18:15] VITALS: BP 126/64
[2024-12-18] MEDS ORDERED: Trimethoprim/Sulfamethoxazole DS Tab PO ONE (18:15)
[2024-12-18] MEDS ORDERED: SULTRIDS PO (18:16)
== END 2024-12-18 18:42 | disposition home or self-care (01) ==
LOC: ER 14:51
PROVIDERS: Student in an Organized Health Care Education/Training Program
DX: L02.416 Cutaneous abscess of left lower limb (principal); E87.1 Hypo-osmolality and hyponatremia; E11.65 Type 2 diabetes mellitus with hyperglycemia; I25.10 Atherosclerotic heart disease of native coronary artery without angina pectoris; I11.0 Hypertensive heart disease with heart failure; I50.20 Unspecified systolic (congestive) heart failure; I48.91 Unspecified atrial fibrillation; I25.2 Old myocardial infarction; F17.210 Nicotine dependence, cigarettes, uncomplicated; Z95.5 Presence of coronary angioplasty implant and graft; Z88.8 Allergy status to other drugs, medicaments and biological substances; Z79.02 Long term (current) use of antithrombotics/antiplatelets; Z79.01 Long term (current) use of anticoagulants; Z79.84 Long term (current) use of oral hypoglycemic drugs; Z79.4 Long term (current) use of insulin; Z79.899 Other long term (current) drug therapy
CPT/HCPCS: 10060; 80053; 85025; 99283-25; A9270

== ENCOUNTER 2024-12-23 19:11 | Inpatient (IN) | payer OTHER ==
[~2024-12-23] VITALS: Ht 175.3 cm; Wt 84.5 kg
[2024-12-23 21:21] LABS: BASOPHILS ABSOLUTE AUTO 0.05 K/mm3 (0.00-0.23); BASOPHILS PERCENT AUTO 1 % (0-2); EOSINOPHILS ABSOLUTE AUTO 0.08 K/mm3 (0.00-0.68); EOSINOPHILS PERCENT AUTO 1 % (0-6); Hematocrit 42.2 % (37.0-53.0); Hemoglobin 14.7 g/dL (13.5-17.5); IMMATURE GRAN ABSOLUTE AUTO 0.04 K/mm3 (0.00-0.10); IMMATURE GRAN PERCENT AUTO 1 % (0-1); LYMPHOCYTES ABSOLUTE AUTO 1.33 K/mm3 (0.84-5.20); LYMPHOCYTES PERCENT AUTO 18 % (21-46); MONOCYTES ABSOLUTE AUTO 0.46 K/mm3 (0.16-1.47); MONOCYTES PERCENT AUTO 6 % (4-13); Mean Corpuscular HGB Conc 34.8 g/dL (31.5-36.5); Mean Corpuscular Volume 87 fL (80-100); NEUTROPHILS ABSOLUTE AUTO 5.31 K/mm3 (1.96-9.15); NEUTROPHILS PERCENT AUTO 73 % (41-73); NRBC ABSOLUTE 0.00 K/mm3 (0.00-0.02); NRBC Auto 0.0 /100 WBC (0.0-0.2); Platelet Count 372 K/mm3 (150-400); RDW Coefficient Variation 13.4 % (11.7-14.2); RDW Standard Deviation 42.5 fL (35.1-46.3)
[2024-12-23 21:42] LABS: Alanine Aminotransfer (ALT/SGP 29.0 U/L (12-78); Albumin, Blood 3.7 g/dL (3.4-5.0); Albumin/Globulin Ratio 0.7 (0.8-1.8); Anion Gap 8.0 mmol/L (3-11); Aspartate Aminotrans (AST/SGOT 17.0 U/L (12-37); Bilirubin, Total 0.6 mg/dL (0.1-1.0); Blood Urea Nitrogen 28.0 mg/dL (8-24); CO2, Blood 31.0 mmol/L (21-32); Calcium, Blood 9.3 mg/dL (8.5-10.1); Chloride, Blood 97.0 mmol/L (98-108); Creatinine, Blood 1.17 mg/dL (0.60-1.20); Globulin, Blood 5.0 g/dL (2.2-4.0); Glucose, Blood 482.0 mg/dL (70-99); Potassium, Blood 4.7 mmol/L (3.5-5.5); Sodium, Blood 131.0 mmol/L (136-145); Total Protein, Blood 8.7 g/dL (6.4-8.2)
[2024-12-23] MEDS ORDERED: Ketorolac Tromethamine 15mg Vial IV ONE (21:45)
[2024-12-23] MEDS ORDERED: Ondansetron HCl 2 MG / ML 2ML Vial IV PRN (22:40)
[2024-12-23] MEDS ORDERED: Vancomycin (Pharmacy Consult) IV SCH (23:00)
[2024-12-23] MEDS ORDERED: Insulin Glargine-Yfgn 100 Unit/mL 3 ML SYR SC SCH (23:00)
[2024-12-23] MEDS ORDERED: Polyethylene Glycol 3350 17 gm PO PRN (23:05)
[2024-12-24 00:48] VITALS: BP 143/82
[2024-12-24] MEDS ORDERED: Insulin Glargine-Yfgn 100 Unit/mL 3 ML SYR SC ONE (01:30)
--- NOTE | 2024-12-24 01:43 | NUR ---
ADMISSION NOTE PT ARRIVED O143 FROM ER. PT WAS AOX4, CALM AND COOPERATIVE. EXPLAINED TO PT CALL LIGHT USE. THIS RN TO ASSUME CARE.
--- NOTE | 2024-12-24 02:22 | NUR ---
PT HAD POC BG OF 486 ON GETTING TO FLOOR. CALLED HOSPITALIST FOR ORDERS. RECIEVED ORDERS FOR 1 TIME DOSE OF INSULIN GLARGINE.
[2024-12-24 05:10] VITALS: BP 146/71
[2024-12-24 06:25] LABS: BASOPHILS ABSOLUTE AUTO 0.04 K/mm3 (0.00-0.23); BASOPHILS PERCENT AUTO 1 % (0-2); EOSINOPHILS ABSOLUTE AUTO 0.13 K/mm3 (0.00-0.68); EOSINOPHILS PERCENT AUTO 2 % (0-6); Hematocrit 37.6 % (37.0-53.0); Hemoglobin 13.3 g/dL (13.5-17.5); IMMATURE GRAN ABSOLUTE AUTO 0.03 K/mm3 (0.00-0.10); IMMATURE GRAN PERCENT AUTO 1 % (0-1); LYMPHOCYTES ABSOLUTE AUTO 1.68 K/mm3 (0.84-5.20); LYMPHOCYTES PERCENT AUTO 28 % (21-46); MONOCYTES ABSOLUTE AUTO 0.49 K/mm3 (0.16-1.47); MONOCYTES PERCENT AUTO 8 % (4-13); Mean Corpuscular HGB Conc 35.4 g/dL (31.5-36.5); Mean Corpuscular Volume 87 fL (80-100); NEUTROPHILS ABSOLUTE AUTO 3.57 K/mm3 (1.96-9.15); NEUTROPHILS PERCENT AUTO 60 % (41-73); NRBC ABSOLUTE 0.00 K/mm3 (0.00-0.02); NRBC Auto 0.0 /100 WBC (0.0-0.2); Platelet Count 299 K/mm3 (150-400); RDW Coefficient Variation 13.3 % (11.7-14.2); RDW Standard Deviation 41.9 fL (35.1-46.3)
[2024-12-24] MEDS ORDERED: Polyethylene Glycol 3350 17 gm PO PRN (06:25)
[2024-12-24 06:53] LABS: Alanine Aminotransfer (ALT/SGP 25.0 U/L (12-78); Albumin, Blood 3.0 g/dL (3.4-5.0); Albumin/Globulin Ratio 0.8 (0.8-1.8); Anion Gap 9.0 mmol/L (3-11); Aspartate Aminotrans (AST/SGOT 16.0 U/L (12-37); Bilirubin, Total 0.5 mg/dL (0.1-1.0); Blood Urea Nitrogen 30.0 mg/dL (8-24); CO2, Blood 29.0 mmol/L (21-32); Calcium, Blood 8.5 mg/dL (8.5-10.1); Chloride, Blood 101.0 mmol/L (98-108); Creatinine, Blood 1.26 mg/dL (0.60-1.20); Globulin, Blood 3.8 g/dL (2.2-4.0); Glucose, Blood 404.0 mg/dL (70-99); Magnesium, Blood 2.2 mg/dL (1.6-2.4); Potassium, Blood 4.0 mmol/L (3.5-5.5); Sodium, Blood 135.0 mmol/L (136-145); Total Protein, Blood 6.8 g/dL (6.4-8.2)
--- NOTE | 2024-12-24 07:14 | NUR ---
SHIFT SUMMARY PT HERE FOR L KNEE ABCESS. PT HAS BEEN AOX4, CALM AND COOPERATIVE. HE HAS BEEN COMPLAINING OF CONSTANT PAIN FROM LOW BACK TO LEFT FOOT, SVEN IN L LATERAL KNEE. HE HAS BEEN INDEPENDENT IN RM. HE CALLS APPROPRIATELY. HE HAD HYEPERGLYCEMIC EPISODE PRIOR TO ARRIVING ON FLOOR. WHEN FINGERSTICK WAS DONE UPON ADMISSION, BG WAS 482. CALLED MD AND RECIEVED ORDERS FOR LONG ACTING INSULIN. PT ALSO HAD POWERGLIDE PLACED, DUE TO DIFFICULTY STARTING IV. PT IV HAD BLOWN ON INITIAL FLUSH. PT HAS HAD NO OTHER COMPLAINTS OVERNIGHT. HE HAD UNEVENTFUL EVENING.
[2024-12-24 07:28] VITALS: BP 173/98
[2024-12-24] MEDS ORDERED: Insulin Human Lispro 100 Units/ML 3ML Syringe SC SCH ×2 (07:30→17:30)
[2024-12-24] MEDS ORDERED: Lactobacil 2-S.Thermo-Bifido 1 1 Cap PO SCH (09:00)
[2024-12-24] MEDS ORDERED: Enoxaparin 40 MG/0.4 ML SYR SC SCH (09:00)
[2024-12-24] MEDS ORDERED: Insulin Glargine-Yfgn 100 Unit/mL 3 ML SYR SC SCH (09:00)
[2024-12-24] MEDS ORDERED: Albuterol HFA200 ACT/6.7 GM INH INH PRN (14:35)
[2024-12-24] MEDS ORDERED: Isosorbide Mononitrate 30 MG TABCR PO SCH (15:00)
[2024-12-24 19:29] VITALS: BP 112/88
--- NOTE | 2024-12-24 19:44 | NUR ---
SHIFT SUMMARY CLIENT A0X4. MEDICATION COMPLIANT. INCREASED PAIN TO KNEE. MEDICATED PER EMAR. CLIENT TAKES SMALL WALKS TO HELP WITH THE PAIN. CT WITH CONTRAST OF KNEE PERFORMED. CONTINUING IV ABT. BED IS IN LOW POSITION AND CALL LIGHT IS WITHIN REACH
[2024-12-24 21:15] LABS: U Amphetamine Screen Not Detected; U Barbituate Screen Not Detected; U Benzodiazapine Screen Not Detected; U Buprenorphine Screen Not Detected; U Cannabinoids Screen DETECTED; U Cocaine Screen Not Detected; U Methadone Screen Not Detected; U Methamphetamine Screen Not Detected; U Opiates Screen Not Detected; U Oxycodone Screen Not Detected; U Phencyclidine Screen Not Detected
[2024-12-25] MEDS ORDERED: NS 250 ML IV PRN (01:55)
--- NOTE | 2024-12-25 04:03 | NUR ---
SHIFT SUMMARY PATIENT HAD NO ACUTE CHANGES. ALERT ORIENTED AND INDEPENDENT IN ROOM. ANXIOUS THROUGHOUT SHIFT. DENIES CHEST PAIN, SOB, AND N/V. VSS/AFEBRILE. REPORTED LEFT LEG PAIN X 3 AND OXYCODONE 5 MG AND FLEXERIL GIVEN PER EMAR. POWERGLIDE RU ARM INTACT. IV ABX INFUSED. CBG 283. URINE TOX SCREEN SENT TO LAB. AWAKE MOST OF THE SHIFT. CALL LIGHT IN REACH. BED IN LOWEST POSITION. WILL CONTINUE TO MONITOR UNTIL DAY SHIFT NURSE ASSUMES CARE.
[2024-12-25 04:34] VITALS: BP 136/83
--- NOTE | 2024-12-25 06:34 | NUR ---
PATIENT REFUSING MORNING LABS AT THIS TIME.
[2024-12-25 07:49] VITALS: BP 143/89
[2024-12-25] MEDS ORDERED: GABA300 PO (09:25)
[2024-12-25] MEDS ORDERED: LISI20 PO (09:28)
[2024-12-25] MEDS ORDERED: TAMS.4ER PO (09:29)
[2024-12-25] MEDS ORDERED: SPIR25 PO (09:30)
[2024-12-25] MEDS ORDERED: TIZA4 PO (09:30)
[2024-12-25 10:45] LABS: BASOPHILS ABSOLUTE AUTO 0.05 K/mm3 (0.00-0.23); BASOPHILS PERCENT AUTO 1 % (0-2); EOSINOPHILS ABSOLUTE AUTO 0.16 K/mm3 (0.00-0.68); EOSINOPHILS PERCENT AUTO 2 % (0-6); Hematocrit 38.2 % (37.0-53.0); Hemoglobin 13.3 g/dL (13.5-17.5); IMMATURE GRAN ABSOLUTE AUTO 0.03 K/mm3 (0.00-0.10); IMMATURE GRAN PERCENT AUTO 0 % (0-1); LYMPHOCYTES ABSOLUTE AUTO 1.22 K/mm3 (0.84-5.20); LYMPHOCYTES PERCENT AUTO 15 % (21-46); MONOCYTES ABSOLUTE AUTO 0.61 K/mm3 (0.16-1.47); MONOCYTES PERCENT AUTO 7 % (4-13); Mean Corpuscular HGB Conc 34.8 g/dL (31.5-36.5); Mean Corpuscular Volume 88 fL (80-100); NEUTROPHILS ABSOLUTE AUTO 6.13 K/mm3 (1.96-9.15); NEUTROPHILS PERCENT AUTO 75 % (41-73); NRBC ABSOLUTE 0.00 K/mm3 (0.00-0.02); NRBC Auto 0.0 /100 WBC (0.0-0.2); Platelet Count 291 K/mm3 (150-400); RDW Coefficient Variation 13.5 % (11.7-14.2); RDW Standard Deviation 43.8 fL (35.1-46.3)
[2024-12-25 11:40] LABS: Alanine Aminotransfer (ALT/SGP 34.0 U/L (12-78); Albumin, Blood 2.9 g/dL (3.4-5.0); Albumin/Globulin Ratio 0.7 (0.8-1.8); Anion Gap 7.0 mmol/L (3-11); Aspartate Aminotrans (AST/SGOT 21.0 U/L (12-37); Bilirubin, Total 1.4 mg/dL (0.1-1.0); Blood Urea Nitrogen 21.0 mg/dL (8-24); CO2, Blood 30.0 mmol/L (21-32); Calcium, Blood 8.4 mg/dL (8.5-10.1); Chloride, Blood 103.0 mmol/L (98-108); Creatinine, Blood 1.03 mg/dL (0.60-1.20); Globulin, Blood 3.9 g/dL (2.2-4.0); Glucose, Blood 240.0 mg/dL (70-99); Potassium, Blood 3.6 mmol/L (3.5-5.5); Sodium, Blood 136.0 mmol/L (136-145); Total Protein, Blood 6.8 g/dL (6.4-8.2)
[2024-12-25] MEDS ORDERED: Clindamycin Phosphate 300 MG in NS 50 ML IV SCH (12:37)
[2024-12-25] MEDS ORDERED: Lidocaine 1%-Epineph 1:100000 20 ML MDV INJ ONE (14:20)
--- NOTE | 2024-12-25 20:04 | NUR ---
SUMMARY- AAOX4. ON RA. SBA IN ROOM. NO ACUTE EVENTS THIS SHIFT. LEFT OUTER KNEE PAIN WELL CONTROLLED WITH EMAR PAIN MEDS.
[2024-12-25 20:27] VITALS: BP 136/81
[2024-12-25] MEDS ORDERED: Clindamycin Phosphate 60 GM Tube TOP SCH (21:00)
[2024-12-26 02:04] VITALS: BP 142/76
[2024-12-26] MEDS ORDERED: FentaNYL Citrate 50 MCG/ML 2 ML Injection IV PRN (04:10)
--- NOTE | 2024-12-26 04:54 | NUR ---
SHIFT SUMMARY: PT AOX4. PT HAS A WOUND ON THE LEFT KNEE. WOUND REDRESSED ONCE THIS SHIFT AND MEDICATED PER EMAR. PRN OXY WAS NOT EFFECTIVE AND CALL WAS PLACED TO HELP WITH BREAK THROUGH PN. FENTYNAL WAS ORDERED AND PT STATES THEIR PAIN IS IMPROVING. CALL LIGHT WITH IN REACH
[2024-12-26 07:06] LABS: BASOPHILS ABSOLUTE AUTO 0.04 K/mm3 (0.00-0.23); BASOPHILS PERCENT AUTO 1 % (0-2); EOSINOPHILS ABSOLUTE AUTO 0.13 K/mm3 (0.00-0.68); EOSINOPHILS PERCENT AUTO 2 % (0-6); Hematocrit 39.1 % (37.0-53.0); Hemoglobin 13.3 g/dL (13.5-17.5); IMMATURE GRAN ABSOLUTE AUTO 0.03 K/mm3 (0.00-0.10); IMMATURE GRAN PERCENT AUTO 0 % (0-1); LYMPHOCYTES ABSOLUTE AUTO 1.69 K/mm3 (0.84-5.20); LYMPHOCYTES PERCENT AUTO 23 % (21-46); MONOCYTES ABSOLUTE AUTO 0.69 K/mm3 (0.16-1.47); MONOCYTES PERCENT AUTO 9 % (4-13); Mean Corpuscular HGB Conc 34.0 g/dL (31.5-36.5); Mean Corpuscular Volume 88 fL (80-100); NEUTROPHILS ABSOLUTE AUTO 4.89 K/mm3 (1.96-9.15); NEUTROPHILS PERCENT AUTO 66 % (41-73); NRBC ABSOLUTE 0.00 K/mm3 (0.00-0.02); NRBC Auto 0.0 /100 WBC (0.0-0.2); Platelet Count 288 K/mm3 (150-400); RDW Coefficient Variation 13.4 % (11.7-14.2); RDW Standard Deviation 43.6 fL (35.1-46.3)
[2024-12-26 07:20] LABS: Anion Gap 4.0 mmol/L (3-11); Blood Urea Nitrogen 23.0 mg/dL (8-24); CO2, Blood 31.0 mmol/L (21-32); Calcium, Blood 8.3 mg/dL (8.5-10.1); Chloride, Blood 104.0 mmol/L (98-108); Creatinine, Blood 1.09 mg/dL (0.60-1.20); Glucose, Blood 94.0 mg/dL (70-99); Potassium, Blood 3.3 mmol/L (3.5-5.5); Sodium, Blood 136.0 mmol/L (136-145)
[2024-12-26 07:59] VITALS: BP 163/95
[2024-12-26] MEDS ORDERED: Lidocaine 4% 1 Patch TOP SCH (09:00)
[2024-12-26] MEDS ORDERED: ACET325 PO (14:43)
[2024-12-26] MEDS ORDERED: OXAYDO5 M1 PO (14:45)
[2024-12-26] MEDS ORDERED: VISBIOME 112.51 EACH PO (14:45)
[2024-12-26] MEDS ORDERED: DOXY100 PO (14:45)
--- NOTE | 2024-12-26 16:53 | NUR ---
1524-DC PT LEFT IN [place] CONDITION WITH ALL BELONGINGS. PT INFORMED OF WOUND CENTER REFERRAL AND NEW RX.
== END 2024-12-26 15:24 | disposition home or self-care (01) | DRG 603 ==
LOC: ER 19:11 → MEDS 19:12 → ER 19:12 → MEDS 12-24 01:02
PROVIDERS: Registered Nurse; Student in an Organized Health Care Education/Training Program; ADMIT Student in an Organized Health Care Education/Training Program
DX: L02.416 Cutaneous abscess of left lower limb (principal); I13.0 Hypertensive heart and chronic kidney disease with heart failure and stage 1 through stage 4 chronic kidney disease, or unspecified chronic kidney disease; I50.22 Chronic systolic (congestive) heart failure; I42.0 Dilated cardiomyopathy; L03.116 Cellulitis of left lower limb; I25.2 Old myocardial infarction; I25.10 Atherosclerotic heart disease of native coronary artery without angina pectoris; E78.5 Hyperlipidemia, unspecified; N18.2 Chronic kidney disease, stage 2 (mild); E11.22 Type 2 diabetes mellitus with diabetic chronic kidney disease; I48.91 Unspecified atrial fibrillation; F15.90 Other stimulant use, unspecified, uncomplicated; F32.A Depression, unspecified; F41.9 Anxiety disorder, unspecified; E11.65 Type 2 diabetes mellitus with hyperglycemia; I48.0 Paroxysmal atrial fibrillation; Z95.5 Presence of coronary angioplasty implant and graft; Z86.19 Personal history of other infectious and parasitic diseases; Z79.01 Long term (current) use of anticoagulants; Z79.02 Long term (current) use of antithrombotics/antiplatelets; Z79.4 Long term (current) use of insulin; Z79.84 Long term (current) use of oral hypoglycemic drugs; Z79.891 Long term (current) use of opiate analgesic; Z79.899 Other long term (current) drug therapy; Z88.8 Allergy status to other drugs, medicaments and biological substances
CPT/HCPCS: 36415; 73701; 80048; 80053; 82947; 83036; 83735; 85025; 87070; 87075; 87077; 87186; 87205; 94760; 96365; 96366; 96374; 96375; 96376; 99284-25; A9270; C1751; G0378; J1815; J1885; J3010; J3373; J7040; J7050; Q9967

== ENCOUNTER 2025-02-03 02:35 | Emergency (ER) | payer OTHER ==
[~2025-02-03] VITALS: Ht 175.3 cm; Wt 81.7 kg
[~2025-02-03 02:35] MED LIST changes: +ACET325 PO; +DOXY100 PO; +GABA300 PO; +LISI20 PO; +TAMS.4ER PO; +TIZA4 PO; +VISBIOME 112.51 EACH PO
[2025-02-03] MEDS ORDERED: OXYC5 PO (07:54)
[2025-02-03] MEDS ORDERED: RX Prepack 6 Tabs Oxycodone 5mg UD ONE (08:00)
[2025-02-03 08:20] VITALS: BP 153/106
== END 2025-02-03 08:27 | disposition home or self-care (01) ==
LOC: ER 02:35
DX: S76.312A Strain of muscle, fascia and tendon of the posterior muscle group at thigh level, left thigh, initial encounter (principal); S76.012A Strain of muscle, fascia and tendon of left hip, initial encounter; I48.91 Unspecified atrial fibrillation; E11.9 Type 2 diabetes mellitus without complications; I11.0 Hypertensive heart disease with heart failure; I50.20 Unspecified systolic (congestive) heart failure; F17.210 Nicotine dependence, cigarettes, uncomplicated; W01.0XXA Fall on same level from slipping, tripping and stumbling without subsequent striking against object, initial encounter; Z79.899 Other long term (current) drug therapy; Z79.4 Long term (current) use of insulin; Z88.8 Allergy status to other drugs, medicaments and biological substances
CPT/HCPCS: 70450; 72192; 73552; 99284-25; A9270

== ENCOUNTER 2025-02-15 03:18 | Emergency (ER) | payer OTHER ==
[~2025-02-15] VITALS: Ht 175.3 cm; Wt 83.9 kg
[2025-02-15 03:27] VITALS: BP 166/111
[2025-02-15] MEDS ORDERED: Voltaren100 GM TOP (03:33)
[2025-02-15] MEDS ORDERED: Robaxin750 MG PO (03:33)
== END 2025-02-15 03:42 | disposition home or self-care (01) ==
LOC: ER 03:18
DX: S70.12XA Contusion of left thigh, initial encounter (principal); E11.9 Type 2 diabetes mellitus without complications; I48.91 Unspecified atrial fibrillation; Z79.01 Long term (current) use of anticoagulants; I11.0 Hypertensive heart disease with heart failure; I50.20 Unspecified systolic (congestive) heart failure; F17.210 Nicotine dependence, cigarettes, uncomplicated; Z88.8 Allergy status to other drugs, medicaments and biological substances; Z79.899 Other long term (current) drug therapy; Z79.84 Long term (current) use of oral hypoglycemic drugs; Z79.4 Long term (current) use of insulin; X58.XXXA Exposure to other specified factors, initial encounter
CPT/HCPCS: 99282; A9270

== ENCOUNTER 2025-05-03 07:28 | Emergency (ER) | payer OTHER ==
[~2025-05-03] VITALS: Ht 175.3 cm; Wt 74.8 kg
[~2025-05-03 07:28] MED LIST changes: +Robaxin750 MG PO; +Voltaren100 GM TOP
[2025-05-03 08:01] VITALS: BP 170/112
[2025-05-03] MEDS ORDERED: PRAMIPEXOLE DIHY1 MG PO (09:59)
== END 2025-05-03 10:10 | disposition home or self-care (01) ==
LOC: ER 07:28
DX: G25.81 Restless legs syndrome (principal); Z87.891 Personal history of nicotine dependence; Z88.8 Allergy status to other drugs, medicaments and biological substances
CPT/HCPCS: 99283; A9270

== ENCOUNTER 2025-05-11 22:34 | Emergency (ER) | payer OTHER ==
[~2025-05-11] VITALS: Ht 172.7 cm; Wt 83.9 kg
[~2025-05-11 22:34] MED LIST changes: +PRAMIPEXOLE DIHY1 MG PO
[2025-05-12] MEDS ORDERED: Lidocaine 4% 1 Patch TOP ONE (04:00)
[2025-05-12] MEDS ORDERED: LIDO700A20 TOP (04:00)
[2025-05-12 04:12] VITALS: BP 163/98
== END 2025-05-12 04:14 | disposition home or self-care (01) ==
LOC: ER 22:34
DX: S30.13XA Contusion of flank (latus) region, initial encounter (principal); I11.0 Hypertensive heart disease with heart failure; I50.20 Unspecified systolic (congestive) heart failure; E11.9 Type 2 diabetes mellitus without complications; F17.210 Nicotine dependence, cigarettes, uncomplicated; X58.XXXA Exposure to other specified factors, initial encounter; Z79.899 Other long term (current) drug therapy; Z79.4 Long term (current) use of insulin; Z79.02 Long term (current) use of antithrombotics/antiplatelets; Z79.84 Long term (current) use of oral hypoglycemic drugs; Z88.8 Allergy status to other drugs, medicaments and biological substances
CPT/HCPCS: 71100; 76705; 99284-25; A9270